=== PATIENT | female | born 1945 | race Caucasian/White ===

== ENCOUNTER → 2018-03-31 | Outpatient (CLI) | payer OTHER ==
--- NOTE | 2018-03-31 18:58 | DIAGNOSTIC IMAGING REPORT ---
ABDOMEN LIMITED (US) HISTORY: 73 years-old Female RUQ PAIN,EPIGASTRIC PAIN, GALLSTONES VS INFECTION acute right upper quadrant abdominal pain COMPARISON: None available TECHNIQUE: Multiple real-time sonographic images of the abdominal right upper quadrant were obtained assessing grayscale appearance and color flow FINDINGS: Pancreas is mostly obscured by bowel gas with the visualized portions appearing unremarkable. The liver appears to be within normal limits without focal mass or intrahepatic biliary ductal dilation. Behavioral Science Chair reports hepatopedal flow within the main portal vein. Gallbladder is unremarkable without wall thickening, shadowing cholelithiasis or pericholecystic fluid. Minimal low level internal echoes within the gallbladder lumen suggests gallbladder sludge. Common bile duct is normal, 5 mm. Imaged right kidney is unremarkable without hydronephrosis. IMPRESSION: 1. Suggested mild gallbladder sludge without cholelithiasis or sonographic evidence of acute cholecystitis. 2. No biliary ductal dilation. The above report was generated using voice recognition software. It may contain grammatical, syntax or spelling errors. Electronically signed by: Liang Hatfield M.D. 03/31/2018 6:57 PM Dictated Date/Time: 03/31/2018 6:54 PM
== END | disposition home or self-care (01) ==
LOC: C.ULTR 17:20
PROVIDERS: ATTEND Internal Medicine
DX: R10.11 Right upper quadrant pain (principal); R10.13 Epigastric pain

== ENCOUNTER 2019-07-05 18:43 | Inpatient (IN) ==
[2019-07-05] MEDS ORDERED: HYDROmorphone INJ 1 MG/ML SYRINGE IV PRN (18:46)
[2019-07-05] MEDS ORDERED: ONDANSETRON INJ 2 MG/ML 2 ML VIAL IV STA (18:46)
[2019-07-05] MEDS ORDERED: ACETAMINOPHEN 1,000 MG/100 ML VIAL IV STA (18:59)
[2019-07-05] MEDS ORDERED: SODIUM CHLORIDE 0.9% 1000ML 1,000 ML IV SCH (19:00)
[2019-07-05 19:02] LABS: Basophils # (auto) 0.03 K/uL (0-0.2); Basophils % (auto) 0.3 %; Eosinophils # (auto) 0.29 K/uL (0-0.5); Eosinophils % (auto) 2.5 %; Hematocrit (blood only) 40.1 % (37-47); Hemoglobin 13.8 g/dL (12.0-16.0); Immature Granulocytes # (auto) 0.35 K/uL (0.00-0.02); Lymphocytes # (auto) 1.76 K/uL (1.2-3.4); Mean Corpuscular Hgb Conc 34.4 g/dL (32-36); Mean Corpuscular Volume 86.8 fL (80-100); Mean Platelet Volume 9.8 fL (7.4-10.4); Monocytes # (auto) 0.04 K/uL (0.11-0.59); Monocytes % (auto) 0.3 %; Neutrophils # (auto) 9.24 K/uL (1.4-6.5); Neutrophils % (auto) 78.9 %; Nucleated RBC # (auto) 0.03 K/uL (0-0); Nucleated RBC % (auto) 0.2 %; Platelet Count 239 K/uL (130-400); RDW Coefficient of Variation 14.9 % (11.5-14.5); RDW Standard Deviation 46.6 fL (36.4-46.3); Red Blood Count 4.62 M/uL (4.2-5.4); White Blood Count 11.71 K/uL (4.8-10.8)
[2019-07-05] MEDS ORDERED: SODIUM CHLORIDE 0.9% 1000ML 1,000 ML IV ONE (19:10)
[2019-07-05] MEDS ORDERED: OPTIRAY 320 125ml IV PRN (19:11)
[2019-07-05 19:23] LABS: Prothrombin Time 9.8 Seconds (9.0-12.0)
[2019-07-05 19:25] LABS: Alanine Aminotransferase 30 U/L (12-78); Albumin Level 3.6 gm/dl (3.4-5.0); Aspartate Aminotransferase 13 U/L (15-37); BUN Creatinine Ratio 15.5 (10-20); Blood Urea Nitrogen 17 mg/dl (7-18); Calcium 8.8 mg/dl (8.5-10.1); Carbon Dioxide 24 mmol/L (21-32); Chloride 108 mmol/L (98-107); Est GFR (African American) 57.1; Est GFR (Non-African American) 49.3; Glucose 95 mg/dl (70-99); Potassium 3.9 mmol/L (3.5-5.1); Sodium 139 mmol/L (136-145)
[2019-07-05 19:30] LABS: Albumin Globulin Ratio 0.9 (0.9-2); Alkaline Phosphatase 135 U/L (45-117); Bilirubin,Total 0.5 mg/dl (0.2-1); Creatine Kinase 48 U/L (26-192); Creatine Kinase MB < 1.0 ng/ml (0.5-3.6); Globulin 3.8 gm/dl (2.5-4.0); Total Protein 7.4 gm/dl (6.4-8.2); Troponin I < 0.015 ng/ml (0-0.045)
--- NOTE | 2019-07-05 19:31 | CT Scan Report ---
CT ANGIOGRAM OF THE ABDOMEN AND PELVIS; CT SCAN OF THE LUMBAR SPINE WITHOUT IV CONTRAST CLINICAL HISTORY: Generalized abdominal pain. Low back pain. COMPARISON STUDY: Abdominal ultrasound dated 03/31/2018. TECHNIQUE: Following the IV administration of 120 cc of Optiray 320, CT angiogram of the abdomen and pelvis was performed from the lung bases the proximal femora. Additionally, CT of the lumbar spine is performed from the lower thoracic spine to the sacrum. Images for both examinations are reviewed in the axial, sagittal, and coronal planes. 3-D MIPS images are created and assessed. IV contrast was ad ministered without complication. A dose lowering technique was utilized adhering to the principles o f ALARA. CT DOSE: 379.48 mGy.cm FINDINGS: Lower chest: The heart is normal in size and without pericardial effusion. Advanced emphysematous bj nge is seen at the lung bases with bibasilar bullae. No airspace consolidation or pleural effusion is identified. There is a small to moderate hiatal hernia. Liver: The contrast-enhanced liver is enlarged, measuring 19 cm in length. The liver demonstrates dif fusely diminished attenuation consistent with hepatic steatosis. There is no intrahepatic or ductal d ilatation. The main portal veins appear patent. Gallbladder: Unremarkable. Spleen: Normal in size and attenuation noting heterogeneous arterial phase enhancement. Pancreas: Moderately atrophic and grossly unremarkable. Adrenal glands: Unremarkable. Kidneys: The contrast enhanced kidneys history cortical atrophy and are without hydronephrosis. The k idneys enhance symmetrically. Abdominal aorta and iliac arteries: There is advanced atherosclerotic calcification of the abdominal aorta. 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 The abdominal aorta is otherwise normal in caliber and patent. No dissection is seen. There is atherosclerotic calcification of the iliac arteries bilaterally. There is less than 50% luminal n arrowing of the proximal left common iliac artery secondary to focal plaque. The visualized common fe moral and superficial femoral arteries are clear. Major branches of the abdominal aorta: The celiac trunk and superior mesenteric artery are patent. In ferior mesenteric arteries not visualized and likely thrombosed. There are 2 left renal arteries and a single right renal artery. These are patent. Hepatic arterial anatomy is conventional. The splenic artery is patent. Bowel: Question mild wall thickening and hyperemia of the distal stomach. There is moderate sigmoid d iverticulosis without CT evidence of acute diverticulitis. No bowel obstruction is seen. The appendix is not identified. Peritoneum: There is no intraperitoneal free air or abdominal ascites. Lymphadenopathy: None. Pelvic viscera: The bladder is decompressed and not well evaluated. The uterus is surgically absent. No adnexal lesion is seen. Skeletal structures: The skeletal structures are osteopenic. No lytic or blastic lesions are seen. LUMBAR SPINE: Vertebral body height and alignment are maintained throughout the lumbar spine. There i s no evidence of fracture or malalignment. There is straightening of the lumbar lordosis. Small anter ior osteophytes are noted. The transverse and spinous processes are intact. There is no evidence of s pondylolysis. There is advanced disc space narrowing with endplate sclerosis seen at L3-L4. Mild to m oderate disc space narrowing is seen at L4-L5. The remaining disc spaces appear preserved. Posterior disc osteophyte complexes are present at L3-L4, L4-L5, and L5-S1. There is no CT evidence of large di sc herniation or high-grade central canal stenosis. The paraspinous soft tissues are within normal li mits. IMPRESSION: 1. Question mild wall thickening and hyperemia of the distal stomach. Correlate clinically for eviden ce of gastritis. 2. Advanced emphysema. 3. 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 4. The abdominal aorta is otherwise normal in caliber. No dissection is seen and the abdominal aorta is widely patent. 5. The inferior mesenteric artery is not identified and presumably thrombosed. 6. The celiac trunk and superior mesenteric arteries are widely patent. 7. There is moderate diverticulosis of the sigmoid colon without CT evidence of acute diverticulitis. 8. No acute bony abnormality is seen involving the lumbar spine. 9. Osteopenia and spondylotic change as above. 10. Hepatomegaly and hepatic steatosis. 11. Additional findings as above. Electronically signed by: Jerome Mir M.D. 07/05/2019 7:29 PM
--- NOTE | 2019-07-05 19:52 | XRay Report ---
SINGLE VIEW CHEST CLINICAL HISTORY: Generalized abdominal pain. FINDINGS: An AP, portable, upright chest radiograph is obtained. No prior studies are available for c omparison at the time of dictation. The examination is degraded by portable technique, apical lordoti c positioning, and patient rotation. The cardiomediastinal silhouette is unremarkable noting atheros clerotic calcification of the thoracic aorta. Emphysematous change is noted. There is bibasilar scarr ing/atelectasis. No airspace consolidation or large pleural effusion is identified. No pneumothorax i s seen. The skeletal structures are osteopenic. The bony thorax is grossly intact. IMPRESSION: Emphysematous change with no active disease in the chest. Electronically signed by: Jerome Mir M.D. 07/05/2019 7:51 PM
[2019-07-05 21:10] LABS: Appearance Urine Clear (Clear); Bilirubin Urine Negative (Negative); Blood Urine Negative (Negative); Color Urine Yellow; Glucose Urine UA Negative (Negative); Ketones Urine Negative (Negative); Leukocyte Esterase Urine Negative (Negative); Nitrite Urine Negative (Negative); Protein Urine Negative (Negative); Specific Gravity Urine > 1.045 (1.000-1.030); Urobilinogen Urine Negative (Negative)
[2019-07-05] MEDS ORDERED: LACTATED RINGER'S 1,000 ML IV SCH (21:15)
--- NOTE | 2019-07-05 21:58 | History & Physical Report ---
Date of Service July 05, 2019 Assessment & Plan (1) Acute pancreatitis: This is a 74 yr old F who has a significant pmh of HLD, Fibromyaglia, rheumatoid arthritis, GERD, depression who presents to [facility] secondary to pain all over x 25 minutes. In ED patient was noted to have a lipase of 15,060. Her W BC was 11.7, H&H stable 13.8 and 40.1, Pletal count 239. BUN/creatinine stable at 17 and 1.09. EKG revealed normal sinus rhythm at 80 bpm, no ST or T wave changes. LFTs unremarkable. Urinalysis negative for infection but concentrated. Troponin and CK to WNL. 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 Concern for acute pancreatitis -patient denies alcohol use, but does use mo derate Motrin and diclofenac. Also concern for questionable gallbladder or biliary pathology. Keep n.p.o., bowel rest IV fluid Ultrasound of right upper quadrant to rule out gallbladder pathology Repeat lipase Consider GI consult in a.m. Please refer to Dr. Willett's addendum for further details regarding assessment and plan. 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 The abdominal aorta is otherwise normal in caliber and patent. No dissection is seen. There is atherosclerotic calcification of the iliac arteries bilaterally. There is less than 50% luminal narrowing of the proximal left common iliac artery secondary to focal plaque. The visualized common femoral and superficial femoral arteries are clear. Major branches of the abdominal aorta: The celiac trunk and superior mesenteric artery are patent. Inferior mesenteric arteries not visualized and likely thrombosed. There are 2 left renal arteries and a single right renal artery. These are patent. Hepatic arterial anatomy is conventional. The splenic artery is patent. Continue statin therapy, Add ASA obtain lipid panel (5) Rheumatoid arthritis: on diclofenac as outpt would hold in setting of acute pancreatitis (6) HLD (hyperlipidemia): continue statin therapy (7) DVT prophylaxis: Per Dr. Willett Disposition: discharge to home when able Follow up: PCP Dr. Avila upon discharge; also arrange appropriate outpt follow up in regards to incidental finding on CTA of 1.4cm thrombosed saccular aneurysm of aorta History of Present Illness Chief Complaint: Pain all over x 25 minutes Primary Care Provider: Janie Avila MD This is a 74 yr old F who has a significant pmh of HLD, Fibromyaglia, rheumatoid arthritis, GERD, depression who presents to [facility] secondary to pain all over x 25 minutes. Patient was sitting down at her significant other's brother's house when she stood up from chair and had abrupt onset of, "pain all over." Pain was in the back, abdomen, radiating to the chest and down legs. Pain was excruciating, described as stabbing, rated 15/10, worse than child , "you could hear me scream from a mile away." Nothing made pain better. Pain made worse with any sort of movement, even riding in the car. Never had anything like this in the past. Prior to pain she had some fruit, turkey and ham cubes. Further had associated nausea, dizziness. Prior to abdominal pain earlier today she had diarrhea x2, loose and watery in which she took 2 imodium. When asked where pain started she was unable to localize the pain and just stated it was all over and excruciating. She denies any associated palpitations, sob, herrera, emesis, f/c/s. She further denies any melena, hematochezia, dysuria, hematuria, increased urg/freq with urination. Denies significant ETOH use, a glass of wine a week. She takes 2 motrin throughout night occasionally if arthralgias are bad. Otherwise denies significant NSAID use. Patient denies any significant family history of CAD, AAA, HTN, diabetes. States her mother and father both lived in their late 90s. Allergies Allergy/AdvReac Type Severity Reaction Status Date / Time latex Allergy Rash Unverified 07/05/19 21:37 nitrofurantoin AdvReac Vomiting Unverified 07/05/19 21:26 Sulfa (Sulfonamide AdvReac Vomiting Unverified 07/05/19 21:27 Antibiotics) Home Medications Home Medications Medication Instructions Recorded Confirmed Type diclofenac sodium 75 mg PO BID 07/05/19 07/05/19 History epinephrine 0.3 mg IM .UD PRN 07/05/19 07/05/19 History estradiol 2 mg PO .UD 07/05/19 07/05/19 History omeprazole 20 mg PO DAILY 07/05/19 07/05/19 History simvastatin 40 mg PO HS 07/05/19 07/05/19 History trazodone 150 mg PO HS 07/05/19 07/05/19 History Past Med/Surg History Family History Aunt Cerebral aneurysm Other No significant family history Social History Preferred Language: Malaysian Communication Ability: Effective Diesel Instructor Required: No Beliefs That Will Affect Care: None marital status: / Current Living Situation: Significant Other current occupational status: retired current occupation: worked in a [employer] Other Information That Helps Us Care for You: No Feels Safe at Home: Yes Safety Concerns: Feels Safe At This Time Smoking Status: Never smoker Hx Alcohol Use: No Hx Substance Use: No Childhood Exposure to Second-Hand Smoke: No Physical Exam Physical Exam: Gen: WD/WN, Petite, elderly, female, NAD, sitting up in bed, pleasant, conversing easily Head: Normocephalic, Atraumatic Eyes: Sclera normal, no conjunctival injection, PERRLA, EOMI ENT: Gross hearing intact, normal pharynx, mucous membranes moist Neck: supple, no adenopathy, No JVD, no bruit, Resp: Clear to auscultation b/l, no wheeze, rales, rhonchi. Normal insp/exp effort, no accessory muscle use CV: Regular rate, regular rhythm, no murmur, rub, gallop, or ectopy Abd: +BS x 4, soft, mild tenderness to RUQ and epigastrum, nondistended Musculoskeletal: moves extremities active rom x 4, strength intact, good utility mechanic strength Extremities: No edema bilaterally Skin: warm, moist, no rash, negative turgor, cap refill < 2sec Neuro: Alert and oriented x 3, speech normal, good mood/affect, cran nerve 2-12 intact grossly : deferred Results & Data Vital Signs (Past 12 Hours) Vital Signs Temp Pulse Pulse Resp BP BP Pulse Ox 07/05/19 19:53 75 18 117/63 90 07/05/19 18:44 36.6 C 132 H 20 180/145 H 93 Laboratory Results Short CBC 07/05/19 Range/Units 18:50 WBC 11.71 H (4.8-10.8) K/uL Hgb 13.8 (12.0-16.0) g/dL Hct 40.1 (37-47) % Plt Count 239 (130-400) K/uL BMP 07/05/19 18:50 Sodium 139 Potassium 3.9 Chloride 108 H Carbon Dioxide 24 BUN 17 Creatinine 1.09 Glucose 95 Calcium 8.8 Cardiac Enzymes 07/05/19 Range/Units 18:50 Total Creatine Kinase 48 (26-192) U/L CK-MB (CK-2) < 1.0 (0.5-3.6) ng/ml Troponin I < 0.015 (0-0.045) ng/ml Liver Function 07/05/19 Range/Units 18:50 Total Bilirubin 0.5 (0.2-1) mg/dl AST 13 L (15-37) U/L ALT 30 (12-78) U/L Alkaline Phosphatase 135 H (45-117) U/L Albumin 3.6 (3.4-5.0) gm/dl Urine 07/05/19 Range/Units 20:49 Urine Color Yellow Urine Appearance Clear (Clear) Urine pH 6.0 (4.5-7.5) Ur Specific Randolph > 1.045 H (1.000-1.030) Urine Protein Negative (Negative) Urine Glucose (UA) Negative (Negative) Diagnostic Findings CXR: FINDINGS: An AP, portable, upright chest radiograph is obtained. No prior studies are available for comparison at the time of dictation. The examination is degraded by portable technique, apical lordotic positioning, and patient rotation. The cardiomediastinal silhouette is unremarkable noting atherosclerotic calcification of the thoracic aorta. Emphysematous change is noted. There is bibasilar scarring/atelectasis. No airspace consolidation or large pleural effusion is identified. No pneumothorax is seen. The skeletal structures are osteopenic. The bony thorax is grossly intact. IMPRESSION: Emphysematous change with no active disease in the chest. Lumbar Spine CT: IMPRESSION: 1. Question mild wall thickening and hyperemia of the distal stomach. Correlate clinically for evidence of gastritis. 2. Advanced emphysema. 3. 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 4. The abdominal aorta is otherwise normal in caliber. No dissection is seen and the abdominal aorta is widely patent. 5. The inferior mesenteric artery is not identified and presumably thrombosed. 6. The celiac trunk and superior mesenteric arteries are widely patent. 7. There is moderate diverticulosis of the sigmoid colon without CT evidence of acute diverticulitis. 8. No acute bony abnormality is seen involving the lumbar spine. 9. Osteopenia and spondylotic change as above. 10. Hepatomegaly and hepatic steatosis. 11. Additional findings as above. Abd/Pelvis CTA & Lumbar spine: IMPRESSION: 1. Question mild wall thickening and hyperemia of the distal stomach. Correlate clinically for evidence of gastritis. 2. Advanced emphysema. 3. 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 4. The abdominal aorta is otherwise normal in caliber. No dissection is seen and the abdominal aorta is widely patent. 5. The inferior mesenteric artery is not identified and presumably thrombosed. 6. The celiac trunk and superior mesenteric arteries are widely patent. 7. There is moderate diverticulosis of the sigmoid colon without CT evidence of acute diverticulitis. 8. No acute bony abnormality is seen involving the lumbar spine. 9. Osteopenia and spondylotic change as above. 10. Hepatomegaly and hepatic steatosis. 11. Additional findings as above. Medications Administered Hydromorphone HCl (Dilaudid) 1 mg IV Q15M PRN PRN Reason: Pain Stop: 07/19/19 18:45 Last Admin: 07/05/19 18:52 Dose: 1 mg Documented by: [id number] Ioversol (Optiray 320 125ml) 120 ml IV ONCE PRN PRN Reason: Interaction Checking Stop: 07/09/19 19:10 Last Admin: 07/05/19 19:11 Dose: 120 ml Documented by: [id number] Discontinued Medications Sodium Chloride (Nss 1000ml) 1,000 mls @ 999 mls/hr IV .Q1H1M ORA Stop: 07/05/19 20:00 Last Infusion: 07/05/19 20:29 Dose: 0 mls/hr Documented by: [id number] Admin: 07/05/19 19:29 Dose: 999 mls/hr Documented by: [id number] Acetaminophen (Ofirmev) 1,000 mg in 100 mls @ 400 mls/hr IV NOW STA Stop: 07/05/19 19:13 Last Infusion: 07/05/19 20:29 Dose: 0 mls/hr Documented by: [id number] Admin: 07/05/19 19:53 Dose: 400 mls/hr Documented by: [id number] Sodium Chloride (Nss 1000ml) 1,000 mls @ 999 mls/hr IV .Q1H1M ONE Stop: 07/05/19 20:10 Last Admin: 07/05/19 19:53 Dose: 999 mls/hr Documented by: [id number] Ondansetron HCl (Zofran) 4 mg IV NOW STA Stop: 07/05/19 18:47 Last Admin: 07/05/19 18:52 Dose: 4 mg Documented by: [id number] ECG Rate (beats per minute): 80 Rhythm: normal sinus Code Status & VTE Plan Code Status Full Code VTE Prophylaxis Plan VTE Prophylaxis will be ordered: Yes Supervising Physician Co-Signing Physician Notes IM ATTENDING : Patient seen and examined. History obtained from patient and records. Preceding documentation by Ms. Emi Kumar PA-C reviewed. FINAL ASSESSMENT AND PLAN as follows : Acute pancreatitis Rule out biliary etiology Hypertension, elevated secondary discomfort not on maintenance meds Hyperlipidemia on statin Rx PVD Past tobacco abuse GMF Bowel rest IVF, analgesia Gallbladder ultrasound GI consult RE pancreatitis May need surgery consultation pending gallbladder ultrasound results Aspirin for PVD DVT prophylaxis. Lovenox subcu Full code
[2019-07-06] MEDS ORDERED: PROMETHAZINE HCL 12.5 MG in SODIUM CHLORIDE 0.9% 50 ML IV PRN (00:21)
[2019-07-06] MEDS ORDERED: ACETAMINOPHEN 325 MG TAB PO PRN (00:21)
[2019-07-06] MEDS ORDERED: LORazepam 0.25 MG/0.5 ML VIAL IV PRN (00:21)
[2019-07-06] MEDS ORDERED: MoRPHine SULFATE 2 MG/ML CARP IV PRN (00:21)
--- NOTE | 2019-07-06 00:44 | Emergency Department Note ---
Entered by Pierre Tejada acting as a scribe for Aguila Larson MD History of Present Illness General Chief complaint: Back Injury/Pain Stated complaint: BACK PAIN Time Seen by Provider: 07/05/19 18:44 Source: patient History of Present Illness Onset (ago): hour(s) (half hour ago) Location: back Pain Consistency: + constant Quality: + other (pulsating) Associated symptoms: + other (Positive for abdominal pain.) The patient is a 74 year old female who presents to the emergency department with complaints of constant back pain beginning a half hour ago. The patient states that her pain started when she was getting up from a chair and she notes that her back pain is mostly in her lower back. She reports that her pain shoots to her upper back and feels like a pulsating. She also complains of abdominal pain. The patient states that she does not take any blood thinners. Home Medications Home Medications Medication Instructions Recorded Confirmed Type diclofenac sodium 75 mg PO BID 07/05/19 07/05/19 History epinephrine 0.3 mg IM .UD PRN 07/05/19 07/05/19 History estradiol 2 mg PO .UD 07/05/19 07/05/19 History omeprazole 20 mg PO DAILY 07/05/19 07/05/19 History simvastatin 40 mg PO HS 07/05/19 07/05/19 History trazodone 150 mg PO HS 07/05/19 07/05/19 History Allergies Allergy/AdvReac Type Severity Reaction Status Date / Time latex Allergy Rash Unverified 07/05/19 21:37 nitrofurantoin AdvReac Vomiting Unverified 07/05/19 21:26 Sulfa (Sulfonamide AdvReac Vomiting Unverified 07/05/19 21:27 Antibiotics) Past Med/Surg History Medical History PVD (peripheral vascular disease) Emphysema of lung Saccular aneurysm Fibromyalgia (Chronic) Rheumatoid arthritis (Chronic) HLD (hyperlipidemia) (Chronic) Surgical History History of rectocele (Chronic) History of appendectomy (Chronic) History of hysterectomy with bilateral oophorectomy (Chronic) Family History Aunt Cerebral aneurysm Other No significant family history Social History Preferred Language: Pashto Communication Ability: Effective marital status: / Current Living Situation: Significant Other current occupational status: retired current occupation: worked in a [employer] Feels Safe at Home: Yes Smoking Status: Never smoker Hx Alcohol Use: Yes Alcohol type: wine Alcohol Intake Frequency: Rarely Hx Substance Use: No Childhood Exposure to Second-Hand Smoke: No Review of Systems See HPI for pertinent positives & negatives. and A total of 10 systems reviewed and were otherwise negative Physical Exam Vital Signs Vital Signs - 24 hr 07/05/19 18:44 07/05/19 19:53 07/05/19 22:18 Temperature 36.6 C Temperature Source Oral Sepsis Recent Fever Within 48 Hours No Sepsis Action Taken by Nursing No Action Required Pulse Rate 132 H Pulse Rate [Apical] 75 73 Respiratory Rate 20 18 18 Blood Pressure 180/145 H Blood Pressure [Right Arm] 117/63 141/83 H Blood Pressure Mean 156 Blood Pressure Mean [Right Arm] 81 102 Pulse Oximetry 93 90 95 Oxygen Delivery Method Room Air Room Air GENERAL: Awake, alert, writhing around bed crying, complaining of abdominal pain. HENT: Normocephalic, atraumatic. Oropharynx unremarkable. EYES: Normal conjunctiva. Sclera non-icteric. NECK: Supple. No nuchal rigidity. FROM. No JVD. RESPIRATORY: Clear to auscultation. CARDIAC: Regular rate, normal rhythm. Extremities warm and well perfused. Pulses equal. ABDOMEN: Soft, non-distended. No rebound or guarding. No masses. Diffusely tender on exam. RECTAL: Deferred. MUSCULOSKELETAL: Chest examination reveals no tenderness. The back is symm etrical on inspection without obvious abnormality. There is no CVA tenderness to palpation. No joint edema. LOWER EXTREMITIES: Calves are equal size bilaterally and non-tender. No edema. No discoloration. NEURO: Normal sensorium. No sensory or motor deficits noted. SKIN: No rash or jaundice noted. Course 1844: The patient was evaluated in room A10. A complete history and physical exam was performed. 1848: I performed a bedside FAST on the patient. It showed no evidence of free fluid in the abdomen. 1953: I discussed the patient's case with Dr[facility] Jul[facility] 2051: Upon reevaluation, the patient is stable. I discussed the findings and the treatment plan with the patient. She expresses agreement and understanding. I spoke with Dr. Willett of the [facility]. The patient will be evaluated for further management. 2054: I rechecked the patient. Consultations Consultation #1: I discussed the patient's case with Dr. Julien - General Surgery, [place]. Time: 19:54 Consultation #2: I reviewed the patient's [facility] He will evaluate the patient for further management. Time: 20:52 Administered Medications Discontinued Medications Hydromorphone HCl (Dilaudid) 1 mg IV Q15M PRN PRN Reason: Pain Stop: 07/19/19 18:45 Last Admin: 07/05/19 18:52 Dose: 1 mg Documented by: [id number] Sodium Chloride (Nss 1000ml) 1,000 mls @ 999 mls/hr IV .Q1H1M ORA Stop: 07/05/19 20:00 Last Infusion: 07/05/19 20:29 Dose: 0 mls/hr Documented by: [id number] Admin: 07/05/19 19:29 Dose: 999 mls/hr Documented by: [id number] Acetaminophen (Ofirmev) 1,000 mg in 100 mls @ 400 mls/hr IV NOW STA Stop: 07/05/19 19:13 Last Infusion: 07/05/19 20:29 Dose: 0 mls/hr Documented by: [id number] Admin: 07/05/19 19:53 Dose: 400 mls/hr Documented by: [id number] Sodium Chloride (Nss 1000ml) 1,000 mls @ 999 mls/hr IV .Q1H1M ONE Stop: 07/05/19 20:10 Last Admin: 07/05/19 19:53 Dose: 999 mls/hr Documented by: [id number] Ioversol (Optiray 320 125ml) 120 ml IV ONCE PRN PRN Reason: Interaction Checking Stop: 07/09/19 19:10 Last Admin: 07/05/19 19:11 Dose: 120 ml Documented by: [id number] Ondansetron HCl (Zofran) 4 mg IV NOW STA Stop: 07/05/19 18:47 Last Admin: 07/05/19 18:52 Dose: 4 mg Documented by: [id number] Medical Decision Making Differential Diagnosis Differential diagnosis: Etiologies such as muscular strain, fracture, metastatic disease, disc herniation, sciatica, epidural abscess, vertebral osteomyelitis, discitis, spinal epidural hematoma, cord compression, cauda equina/conus medullaris syndrome, aortic disease, infection, shingles, renal colic, gastrointestinal, acute exacerbation of chronic back pain, as well as others were entertained. Medical Records Attestation: I reviewed the patient's medical records. Home Medications Current Medication List: was personally reviewed by me Laboratory Data Attestation: I reviewed the patient's lab results. Result diagrams: 07/05/19 18:50 07/05/19 18:50 Lab Results 07/05/19 07/05/19 07/05/19 Range/Units 18:47 18:50 18:50 WBC 11.71 H (4.8-10.8) K/uL RBC 4.62 (4.2-5.4) M/uL Hgb 13.8 (12.0-16.0) g/dL Hct 40.1 (37-47) % MCV 86.8 (80-100) fL MCH 29.9 (25-34) pg MCHC 34.4 (32-36) g/dL RDW Std Deviation 46.6 H (36.4-46.3) fL RDW Coeff of Cydney 14.9 H (11.5-14.5) % Plt Count 239 (130-400) K/uL MPV 9.8 (7.4-10.4) fL Immature Gran % (Auto) 3.0 % Neut % (Auto) 78.9 % Lymph % (Auto) 15.0 % Parker % (Auto) 0.3 % Eos % (Auto) 2.5 % Baso % (Auto) 0.3 % Immature Gran # (Auto) 0.35 H (0.00-0.02) K/uL Neut # (Auto) 9.24 H (1.4-6.5) K/uL Lymph # (Auto) 1.76 (1.2-3.4) K/uL Parker # (Auto) 0.04 L (0.11-0.59) K/uL Eos # (Auto) 0.29 (0-0.5) K/uL Baso # (Auto) 0.03 (0-0.2) K/uL Absolute Nucleated RBC 0.03 H (0-0) K/uL Nucleated RBC % (auto) 0.2 % PT 9.8 (9.0-12.0) Seconds INR 1.0 (0.9-1.1) Sodium 139 (136-145) mmol/L Potassium 3.9 (3.5-5.1) mmol/L Chloride 108 H (98-107) mmol/L Carbon Dioxide 24 (21-32) mmol/L Anion Gap 8.0 (3-11) BUN 17 (7-18) mg/dl Creatinine 1.09 (0.6-1.2) mg/dl Est Cr Clr Drug Dosing Not Reportable Est GFR ( Amer) 57.1 Est GFR (Non-Af Amer) 49.3 BUN/Creatinine Ratio 15.5 (10-20) Glucose 95 (70-99) mg/dl Calcium 8.8 (8.5-10.1) mg/dl Magnesium (1.8-2.4) mg/dl Total Bilirubin 0.5 (0.2-1) mg/dl AST 13 L (15-37) U/L ALT 30 (12-78) U/L Alkaline Phosphatase 135 H (45-117) U/L Total Creatine Kinase 48 (26-192) U/L CK-MB (CK-2) < 1.0 (0.5-3.6) ng/ml CK/CKMB % Calc TNP Troponin I < 0.015 (0-0.045) ng/ml Total Protein 7.4 (6.4-8.2) gm/dl Albumin 3.6 (3.4-5.0) gm/dl Globulin 3.8 (2.5-4.0) gm/dl Albumin/Globulin Ratio 0.9 (0.9-2) Lipase 1560 H (73-393) U/L Urine Color Urine Appearance (Clear) Urine pH (4.5-7.5) Ur Specific Lamona (1.000-1.030) Urine Protein (Negative) Urine Glucose (UA) (Negative) Urine Ketones (Negative) Urine Blood (Negative) Urine Nitrite (Negative) Urine Bilirubin (Negative) Urine Urobilinogen (Negative) Ur Leukocyte Esterase (Negative) 07/05/19 07/05/19 Range/Units 18:50 20:49 WBC (4.8-10.8) K/uL RBC (4.2-5.4) M/uL Hgb (12.0-16.0) g/dL Hct (37-47) % MCV (80-100) fL MCH (25-34) pg MCHC (32-36) g/dL RDW Std Deviation (36.4-46.3) fL RDW Coeff of Cydney (11.5-14.5) % Plt Count (130-400) K/uL MPV (7.4-10.4) fL Immature Gran % (Auto) % Neut % (Auto) % Lymph % (Auto) % Parker % (Auto) % Eos % (Auto) % Baso % (Auto) % Immature Gran # (Auto) (0.00-0.02) K/uL Neut # (Auto) (1.4-6.5) K/uL Lymph # (Auto) (1.2-3.4) K/uL Parker # (Auto) (0.11-0.59) K/uL Eos # (Auto) (0-0.5) K/uL Baso # (Auto) (0-0.2) K/uL Absolute Nucleated RBC (0-0) K/uL Nucleated RBC % (auto) % PT (9.0-12.0) Seconds INR (0.9-1.1) Sodium (136-145) mmol/L Potassium (3.5-5.1) mmol/L Chloride (98-107) mmol/L Carbon Dioxide (21-32) mmol/L Anion Gap (3-11) BUN (7-18) mg/dl Creatinine (0.6-1.2) mg/dl Est Cr Clr Drug Dosing Est GFR ( Amer) Est GFR (Non-Af Amer) BUN/Creatinine Ratio (10-20) Glucose (70-99) mg/dl Calcium (8.5-10.1) mg/dl Magnesium 2.3 (1.8-2.4) mg/dl Total Bilirubin (0.2-1) mg/dl AST (15-37) U/L ALT (12-78) U/L Alkaline Phosphatase (45-117) U/L Total Creatine Kinase (26-192) U/L CK-MB (CK-2) (0.5-3.6) ng/ml CK/CKMB % Calc Troponin I (0-0.045) ng/ml Total Protein (6.4-8.2) gm/dl Albumin (3.4-5.0) gm/dl Globulin (2.5-4.0) gm/dl Albumin/Globulin Ratio (0.9-2) Lipase (73-393) U/L Urine Color Yellow Urine Appearance Clear (Clear) Urine pH 6.0 (4.5-7.5) Ur Specific Lamona > 1.045 H (1.000-1.030) Urine Protein Negative (Negative) Urine Glucose (UA) Negative (Negative) Urine Ketones Negative (Negative) Urine Blood Negative (Negative) Urine Nitrite Negative (Negative) Urine Bilirubin Negative (Negative) Urine Urobilinogen Negative (Negative) Ur Leukocyte Esterase Negative (Negative) Imaging Data Radiologist's Impression: Radiology results as stated below per my review and the radiologist's interpretation: Radiology results as stated below per my review and the radiologist's interpretation: T ANGIOGRAM OF THE ABDOMEN AND PELVIS; CT SCAN OF THE LUMBAR SPINE WITHOUT IV CONTRAST FINDINGS: Lower chest: The heart is normal in size and without pericardial effusion. Advanced emphysematous change is seen at the lung bases with bibasilar bullae. No airspace consolidation or pleural effusion is identified. There is a small to moderate hiatal hernia. Liver: The contrast-enhanced liver is enlarged, measuring 19 cm in length. The liver demonstrates diffusely diminished attenuation consistent with hepatic steatosis. There is no intrahepatic or ductal dilatation. The main portal veins appear patent. Gallbladder: Unremarkable. Spleen: Normal in size and attenuation noting heterogeneous arterial phase enhancement. Pancreas: Moderately atrophic and grossly unremarkable. Adrenal glands: Unremarkable. Kidneys: The contrast enhanced kidneys history cortical atrophy and are without hydronephrosis. The kidneys enhance symmetrically. Abdominal aorta and iliac arteries: There is advanced atherosclerotic calcification of the abdominal aorta. 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 The abdominal aorta is otherwise normal in caliber and patent. No dissection is seen. There is atherosclerotic calcification of the iliac arteries bilaterally. There is less than 50% luminal narrowing of the proximal left common iliac artery secondary to focal plaque. The visualized common femoral and superficial femoral arteries are clear. Major branches of the abdominal aorta: The celiac trunk and superior mesenteric artery are patent. Inferior mesenteric arteries not visualized and likely thrombosed. There are 2 left renal arteries and a single right renal artery. These are patent. Hepatic arterial anatomy is conventional. The splenic artery is patent. Bowel: Question mild wall thickening and hyperemia of the distal stomach. There is moderate sigmoid diverticulosis without CT evidence of acute diverticulitis. No bowel obstruction is seen. The appendix is not identified. Peritoneum: There is no intraperitoneal free air or abdominal ascites. Lymphadenopathy: None. Pelvic viscera: The bladder is decompressed and not well evaluated. The uterus is surgically absent. No adnexal lesion is seen. Skeletal structures: The skeletal structures are osteopenic. No lytic or blastic lesions are seen. LUMBAR SPINE: Vertebral body height and alignment are maintained throughout the lumbar spine. There is no evidence of fracture or malalignment. There is straightening of the lumbar lordosis. Small anterior osteophytes are noted. The transverse and spinous processes are intact. There is no evidence of spondylol ysis. There is advanced disc space narrowing with endplate sclerosis seen at L3- L4. Mild to moderate disc space narrowing is seen at L4-L5. The remaining disc spaces appear preserved. Posterior disc osteophyte complexes are present at L3- L4, L4-L5, and L5-S1. There is no CT evidence of large disc herniation or high- grade central canal stenosis. The paraspinous soft tissues are within normal limits. IMPRESSION: 1. Question mild wall thickening and hyperemia of the distal stomach. Correlate clinically for evidence of gastritis. 2. Advanced emphysema. 3. 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 4. The abdominal aorta is otherwise normal in caliber. No dissection is seen and the abdominal aorta is widely patent. 5. The inferior mesenteric artery is not identified and presumably thrombosed. 6. The celiac trunk and superior mesenteric arteries are widely patent. 7. There is moderate diverticulosis of the sigmoid colon without CT evidence of acute diverticulitis. 8. No acute bony abnormality is seen involving the lumbar spine. 9. Osteopenia and spondylotic change as above. 10. Hepatomegaly and hepatic steatosis. 11. Additional findings as above. Electronically signed by: Jerome Mir M.D. 07/05/2019 7:29 PM SINGLE VIEW CHEST FINDINGS: An AP, portable, upright chest radiograph is obtained. No prior studies are available for comparison at the time of dictation. The examination is degraded by portable technique, apical lordotic positioning, and patient rotation. The cardiomediastinal silhouette is unremarkable noting atherosclerotic calcification of the thoracic aorta. Emphysematous change is n oted. There is bibasilar scarring/atelectasis. No airspace consolidation or large pleural effusion is identified. No pneumothorax is seen. The skeletal structures are osteopenic. The bony thorax is grossly intact. IMPRESSION: Emphysematous change with no active disease in the chest. Electronically signed by: Jerome Mir M.D. 07/05/2019 7:51 PM ECG Data Attestation: I personally reviewed and interpreted this ECG as follows: Indication: back/shoulder pain Rate (beats per minute): 80 Rhythm: normal sinus Findings: no ST depression and no ST elevation Additional Comments: Normal EKG. Blood Pressure Blood Pressure Findings: Normal blood pressure Blood Pressure Disposition: did not require urgent referral MDM Narrative This is a 74-year-old female who presents emergency department complaining of severe abdominal pain that radiates into her back. Because of the nature of the patient's pain she was immediately sent for CAT scan of the abdomen and pelvis. This did not show any evidence of a ruptured aneurysm however the patient had a saccular aneurysm as well as an inferior mesenteric artery occlusion. Because of this I did discuss the case with Dr. Julien who felt that this was old. The patient's lipase came back elevated at 1500. Patient has never had a history of pancreatitis before. She was given Dilaudid for her pain she has a normal white blood cell count normal renal profile normal cardiac enzymes. Her EKG does not show any evidence of acute change. The patient would like to be admitted therefore I did discuss the case with the hospitalist service who agreed to admit the patient. Patient was in agreement with the treatment plan. Impression & Plan Acute pancreatitis, Back pain Discharge Plan Visit Data *Final* Discharge Date/Time: 07/05/19 22:52 Chief Complaint: Back Injury/Pain Stated Complaint: BACK PAIN ED Provider: Aguila Larson Discharge Problem: Acute pancreatitis, Back pain Patient Disposition: Admitted As Inpatient Discharge Instructions Interventions: ED Discharge Assessment Last Done: 07/05/19 22:52 The scribe's documentation has been prepared under my direction and personally reviewed by me in its entirety. I confirm that the note above accurately reflects all work, treatment, procedures, and medical decision making performed by me.
[2019-07-06] MEDS: TRAZODONE HCL 100 MG TAB PO SCH ×2 (01:36→21:17)
[2019-07-06] MEDS: LACTATED RINGER'S 1,000 ML IV SCH ×2 (01:37→05:34)
[2019-07-06] MEDS: D5W AND LACTATED RINGERS 1,000 ML IV SCH ×3 (06:14→17:30)
--- NOTE | 2019-07-06 06:18 | Ultrasound Report ---
US gallbladder HISTORY: Pain abd pain COMPARISON: None. FINDINGS: Pancreas: Limited visibility. Liver: Fatty infiltration Gallbladder. Trace sludge. No shadowing gallstones. : Bile duct 6 mm. Right kidney negative for hydronephrosis. IMPRESSION: Trace gallbladder sludge. Fatty replacement of the liver. The above report was generated using voice recognition software. It may contain grammatical, syntax or spelling errors. Electronically signed by: Jaxson Pfeiffer M.D. 07/06/2019 6:16 AM
[2019-07-06 07:25] LABS: Basophils # (auto) 0.02 K/uL (0-0.2); Basophils % (auto) 0.2 %; Eosinophils # (auto) 0.32 K/uL (0-0.5); Eosinophils % (auto) 3.3 %; Hematocrit (blood only) 31.6 % (37-47); Hemoglobin 10.7 g/dL (12.0-16.0); Immature Granulocytes # (auto) 0.03 K/uL (0.00-0.02); Immature Granulocytes % (auto) 0.3 %; Lymphocytes % (auto) 16.4 %; Mean Corpuscular Hgb Conc 33.9 g/dL (32-36); Mean Corpuscular Volume 86.6 fL (80-100); Mean Platelet Volume 9.9 fL (7.4-10.4); Monocytes # (auto) 0.53 K/uL (0.11-0.59); Monocytes % (auto) 5.4 %; Neutrophils # (auto) 7.26 K/uL (1.4-6.5); Neutrophils % (auto) 74.4 %; Platelet Count 189 K/uL (130-400); Red Blood Count 3.65 M/uL (4.2-5.4); White Blood Count 9.76 K/uL (4.8-10.8)
[2019-07-06] MEDS: PANTOprazole 40 MG TAB PO SCH (07:49)
[2019-07-06] MEDS: ASPIRIN 81 MG ECTAB PO SCH (07:49)
[2019-07-06] MEDS: ENOXAPARIN INJ 30 MG/0.3 ML SYR SQ SCH (07:50)
[2019-07-06 08:02] LABS: Albumin Globulin Ratio 0.9 (0.9-2); Albumin Level 2.6 gm/dl (3.4-5.0); BUN Creatinine Ratio 12.4 (10-20); Bilirubin,Total 0.3 mg/dl (0.2-1); Calcium 7.9 mg/dl (8.5-10.1); Creatinine Clr Calc Pharmacy 51.9 ml/min; Est GFR (African American) 79.4; Est GFR (Non-African American) 68.5; Globulin 2.9 gm/dl (2.5-4.0); Potassium 4.1 mmol/L (3.5-5.1); Total Protein 5.6 gm/dl (6.4-8.2)
--- NOTE | 2019-07-06 08:29 | Gastrointestinal Consultation ---
Date of Consultation July 06, 2019 Assessment & Plan (1) Acute pancreatitis: Her elevated lipase is diagnostic of acute pancreatitis. Uncertain cause of the acute pancreatitis. - The mention of sludge in the gallbladder could possibly point to some passage of sludge through the CBD as the cause of the pancreatitis, however, would expect elevated LFTs and dilated bile ducts on imaging and neither of these were present. - Her large infrarenal aneurysm could possibly be compressing the pancreas and could cause pancreatitis. - She denies any alcohol intake. - Her triglyceride levels are normal. Would treat acute pancreatitis with hydration, slowly advancing diet (clear liquids po today. If does well with lunch could have a low fat diet for supper or begin for breakfast tomorrow morning). Recommend OP EUS in 6-8 weeks. Present on Admission?: Yes Supervising Physician Co-Signing Physician Notes I have seen and examined the patient and discussed the management with FREDI Sykes. 74 yo fm for which GI is consulted for abdominal pain and lipase elevation suggestive of pancreatitis. Etiology unclear - denies herbal supplements, alcohol, no evidence of cbd dilation. PE - alert and oriented, about to chat on her cell phone, abd - soft nt nd +bs Lipase elevation on admission now normalized, lft's normal Imaging reviewed- no cbd dilation Agree with further plan of care as per Tony's outpt note. Outpatient EUS. History of Present Illness Reason for Consultation: Pancreatitis Requesting Physician: Dr. Willett Attending Physician: Tiago Ruffin MD History of Present Illness Ms. Natalie Salgado is a 74 yr old female pt of [facility] with a hx of HLD, Fibromyaglia, rheumatoid arthritis, GERD, depression. She presented to the ED yesterday for abdominal pain. She reports that she experienced the sudden onset of severe, "throbbing pain," over her, "entire body," at 6:30 PM yesterday when she went to stand up from sitting. She denies any alcohol intake, high fat food intake or similar pain episodes previously. On arrival, lipase elevated at of 15,060 -> 118 today. WBC and LFTs have been normal. Hb 13.8 on arrival -> 10.7 today. US with gallbladder with sludge, 6mm bile duct. CT angiogram with infrarenal aneurysm, non visible inferior mesenteric artery suggesting it is thrombosed, distal stomach wall thickening but no pancreas or bile duct abnormalities. She is kept NPO and has LR running at 20/hr. She has remained hemodynamically stable. Today, she is awake, alert, oriented, tells me that her pain is "nearly 100% better." She requests to eat and asks if she could go home today. Allergies Allergy/AdvReac Type Severity Reaction Status Date / Time latex Allergy Rash Unverified 07/05/19 21:37 nitrofurantoin AdvReac Vomiting Unverified 07/05/19 21:26 Sulfa (Sulfonamide AdvReac Vomiting Unverified 07/05/19 21:27 Antibiotics) Home Medications Home Medications Medication Instructions Recorded Confirmed Type diclofenac sodium 75 mg PO BID 07/05/19 07/05/19 History epinephrine 0.3 mg IM .UD PRN 07/05/19 07/05/19 History estradiol 2 mg PO .UD 07/05/19 07/05/19 History omeprazole 20 mg PO DAILY 07/05/19 07/05/19 History simvastatin 40 mg PO HS 07/05/19 07/05/19 History trazodone 150 mg PO HS 07/05/19 07/05/19 History Patient History Family History Aunt Cerebral aneurysm Other No significant family history Social History Preferred Language: Chinese Communication Ability: Effective Dentist Required: No Beliefs That Will Affect Care: None marital status: / Current Living Situation: Significant Other current occupational status: retired current occupation: worked in a [employer] Other Information That Helps Us Care for You: No Feels Safe at Home: Yes Safety Concerns: Feels Safe At This Time Smoking Status: Never smoker Hx Alcohol Use: No Hx Substance Use: No Childhood Exposure to Second-Hand Smoke: No Review of Systems Review of Systems: ROS: Gen: Denies weakness, fevers, weight loss Eyes: No eye redness, or pain, no recent vision changes; no yello eyes Resp: No SOB, no cough Cardio: No palpitations/irregular beats, no chest pain GI: No c/o abdominal pain except as part of her "entire body pain," a little nausea on arrival, no no vomiting; no acholic stools. : Denies pain on urination Skin: No jaundice, itching or new rashes Physical Exam Constitutional: WD/WN, vitals as above Eyes: PERRL, conjunctivae normal, anicteric sclerae ENMT: external ear and nose normal, oropharynx normal Neck: trachea midline, no thyromegaly Respiratory: normal respiratory effort, lungs clear to auscultation Cardiovascular: RRR, no murmur, no edema Gastrointestinal (Abdomen): Percussion/Palpation: + abdomen tender (diffusely - states, "it always hurts," but denies any worsening with palpat) and abdomen soft; no splenomegaly, no hernia and no ascites Skin: no rashes, warm and dry Neurologic: PERRL, EOMI, accommodation nl, no face palsy, no dysarthria Psychiatric: A+Ox3, euthymic affect Lymphatic: no cervical or axillary lymphadenopathy Results & Data Vital Signs (Past 12 Hours) Vital Signs Temp Pulse Resp BP BP Pulse Ox 07/06/19 07:50 36.8 C 69 18 148/77 H 94 07/06/19 00:00 36.4 C L 81 18 123/80 123/80 93 07/05/19 23:43 36.5 C 70 16 134/82 97 07/05/19 22:18 73 18 141/83 H 95 Diagnostic Findings RUQ ultrasound on 07/05/19: FINDINGS: Pancreas: Limited visibility. Liver: Fatty infiltration Gallbladder. Trace sludge. No shadowing gallstones. Bile duct 6 mm. Right kidney negative for hydronephrosis. CTA abd/pelvis: 1. Question mild wall thickening and hyperemia of the distal stomach. Correlate clinically for evidence of gastritis. 2. Advanced emphysema. 3. 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 4. The abdominal aorta is otherwise normal in caliber. No dissection is seen and the abdominal aorta is widely patent. 5. The inferior mesenteric artery is not identified and presumably thrombosed. 6. The celiac trunk and superior mesenteric arteries are widely patent. 7. There is moderate diverticulosis of the sigmoid colon without CT evidence of acute diverticulitis. 8. No acute bony abnormality is seen involving the lumbar spine. 9. Osteopenia and spondylotic change as above. 10. Hepatomegaly and hepatic steatosis. 11. Additional findings as above. (1) Acute pancreatitis Acute pancreatitis complication: unspecified Pancreatitis type: unspecified pancreatitis type Qualified Code(s): K85.90 - Acute pancreatitis without necrosis or infection, unspecified
--- NOTE | 2019-07-06 16:13 | Hospitalist Progress Note ---
Date of Service July 06, 2019 Assessment & Plan (1) Acute pancreatitis: per admitting team: This is a 74 yr old F who has a significant pmh of HLD, Fibromyaglia, rheumatoid arthritis, GERD, depression who presents to [facility] secondary to pain all over x 25 minutes. In ED patient was noted to have a lipase of 15,060. Her W BC was 11.7, H&H stable 13.8 and 40.1, Pletal count 239. BUN/creatinine stable at 17 and 1.09. EKG revealed normal sinus rhythm at 80 bpm, no ST or T wave changes. LFTs unremarkable. Urinalysis negative for infection but concentrated. Troponin and CK to WNL. 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 Concern for acute pancreatitis -patient denies alcohol use, but does use moderate Motrin and diclofenac. Also concern for questionable gallbladder or biliary pathology. 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 The abdominal aorta is otherwise normal in caliber and patent. No dissection is seen. There is atherosclerotic calcification of the iliac arteries bilaterally. There is less than 50% luminal narrowing of the proximal left common iliac artery secondary to focal plaque. The visualized common femoral and superficial femoral arteries are clear. Major branches of the abdominal aorta: The celiac trunk and superior mesenteric artery are patent. Inferior mesenteric arteries not visualized and likely thrombosed. There are 2 left renal arteries and a single right renal artery. These are patent. Hepatic arterial anatomy is conventional. The splenic artery is patent. Continue statin therapy, Add ASA (5) Rheumatoid arthritis: on diclofenac as outpt would hold in setting of acute pancreatitis (6) HLD (hyperlipidemia): continue statin therapy (7) DVT prophylaxis: Disposition: discharge to home when able Follow up: PCP Dr. Avila upon discharge; also arrange appropriate outpt follow up in regards to incidental finding on CTA of 1.4cm thrombosed saccular aneurysm of aorta Subjective ff up for acute pancreatitis seen resting in bed, comfortable in good spirits states abdominal pain has resolved tolerating clear liquids well no nausea/vomiting no other symptoms Review of Systems Review of Systems: All systems reviewed & are unremarkable except as noted in HPI & below Physical Exam Physical Exam: General- oriented x 3, not in distress, speaks in sentences with no effort or accessory muscle use Head- atraumatic Eyes- PERRL, EOMI, anicteric ENT- oropharynx clear Neck- supple, no JVD, no adenopathy, no thyromegaly; carotids +2/2, no bruits appreciated Lungs- clear to auscultation bilaterally, no rales/wheezes Heart- normal rate, regular rhythm; no murmur, no gallop, no rub appreciated Abdomen- normal bowel sounds, nondistended, soft, nontender, no masses or hepatosplenomegaly Extremities- no pretibial edema, no calf tenderness; peripheral pulses intact Neuro- alert, oriented x 3; CN 2-12 grossly intact; motor 5/5 bilaterally;sensation 100% on all extremities; no other gross focal neurologic deficits Skin- warm & dry Results & Data Vital Signs (Past 12 Hours) Vital Signs Temp Pulse Resp BP Pulse Ox 07/06/19 07:50 36.8 C 69 18 148/77 H 94 Laboratory Results Laboratory Results - last 24 hr 07/05/19 07/05/19 07/05/19 18:47 18:50 18:50 WBC 11.71 H RBC 4.62 Hgb 13.8 Hct 40.1 MCV 86.8 MCH 29.9 MCHC 34.4 RDW Std Deviation 46.6 H RDW Coeff of [place] 14.9 H Plt Count 239 MPV 9.8 Immature Gran % (Auto) 3.0 Neut % (Auto) 78.9 Lymph % (Auto) 15.0 [place] % (Auto) 0.3 Eos % (Auto) 2.5 Baso % (Auto) 0.3 Immature Gran # (Auto) 0.35 H Neut # (Auto) 9.24 H Lymph # (Auto) 1.76 [place] # (Auto) 0.04 L Eos # (Auto) 0.29 Baso # (Auto) 0.03 Absolute Nucleated RBC 0.03 H Nucleated RBC % (auto) 0.2 PT 9.8 INR 1.0 Sodium 139 Potassium 3.9 Chloride 108 H Carbon Dioxide 24 Anion Gap 8.0 BUN 17 Creatinine 1.09 Est Cr Clr Drug Dosing Not Reportable Est GFR ( Amer) 57.1 Est GFR (Non-Af Amer) 49.3 BUN/Creatinine Ratio 15.5 Glucose 95 POC Glucose Calcium 8.8 Magnesium Total Bilirubin 0.5 AST 13 L ALT 30 Alkaline Phosphatase 135 H Total Creatine Kinase 48 CK-MB (CK-2) < 1.0 CK/CKMB % Calc TNP Troponin I < 0.015 Total Protein 7.4 Albumin 3.6 Globulin 3.8 Albumin/Globulin Ratio 0.9 Triglycerides Lipase 1560 H Urine Color Urine Appearance Urine pH Ur Specific [place] Urine Protein Urine Glucose (UA) Urine Ketones Urine Blood Urine Nitrite Urine Bilirubin Urine Urobilinogen Ur Leukocyte Esterase 07/05/19 07/05/19 07/06/19 18:50 20:49 05:55 WBC RBC Hgb Hct MCV MCH MCHC RDW Std Deviation RDW Coeff of [place] Plt Count MPV Immature Gran % (Auto) Neut % (Auto) Lymph % (Auto) [place] % (Auto) Eos % (Auto) Baso % (Auto) Immature Gran # (Auto) Neut # (Auto) Lymph # (Auto) [place] # (Auto) Eos # (Auto) Baso # (Auto) Absolute Nucleated RBC Nucleated RBC % (auto) PT INR Sodium Potassium Chloride Carbon Dioxide Anion Gap BUN Creatinine Est Cr Clr Drug Dosing Est GFR ( Amer) Est GFR (Non-Af Amer) BUN/Creatinine Ratio Glucose POC Glucose 72 Calcium Magnesium 2.3 Total Bilirubin AST ALT Alkaline Phosphatase Total Creatine Kinase CK-MB (CK-2) CK/CKMB % Calc Troponin I Total Protein Albumin Globulin Albumin/Globulin Ratio Triglycerides Lipase Urine Color Yellow Urine Appearance Clear Urine pH 6.0 Ur Specific [place] > 1.045 H Urine Protein Negative Urine Glucose (UA) Negative Urine Ketones Negative Urine Blood Negative Urine Nitrite Negative Urine Bilirubin Negative Urine Urobilinogen Negative Ur Leukocyte Esterase Negative 07/06/19 07/06/19 06:32 06:32 WBC 9.76 RBC 3.65 L Hgb 10.7 L D Hct 31.6 L MCV 86.6 MCH 29.3 MCHC 33.9 RDW Std Deviation 48.0 H RDW Coeff of [place] 15.0 H Plt Count 189 MPV 9.9 Immature Gran % (Auto) 0.3 Neut % (Auto) 74.4 Lymph % (Auto) 16.4 [place] % (Auto) 5.4 Eos % (Auto) 3.3 Baso % (Auto) 0.2 Immature Gran # (Auto) 0.03 H Neut # (Auto) 7.26 H Lymph # (Auto) 1.60 [place] # (Auto) 0.53 Eos # (Auto) 0.32 Baso # (Auto) 0.02 Absolute Nucleated RBC Nucleated RBC % (auto) PT INR Sodium 145 Potassium 4.1 Chloride 113 H Carbon Dioxide 26 Anion Gap 6.0 BUN 10 D Creatinine 0.83 Est Cr Clr Drug Dosing 51.9 Est GFR ( Amer) 79.4 Est GFR (Non-Af Amer) 68.5 BUN/Creatinine Ratio 12.4 Glucose 85 POC Glucose Calcium 7.9 L Magnesium Total Bilirubin 0.3 AST 12 L ALT 21 Alkaline Phosphatase 89 Total Creatine Kinase CK-MB (CK-2) CK/CKMB % Calc Troponin I Total Protein 5.6 L D Albumin 2.6 L Globulin 2.9 Albumin/Globulin Ratio 0.9 Triglycerides 104 Lipase 118 Urine Color Urine Appearance Urine pH Ur Specific [place] Urine Protein Urine Glucose (UA) Urine Ketones Urine Blood Urine Nitrite Urine Bilirubin Urine Urobilinogen Ur Leukocyte Esterase (1) Acute pancreatitis Acute pancreatitis complication: unspecified Pancreatitis type: unspecified pancreatitis type Qualified Code(s): K85.90 - Acute pancreatitis without necrosis or infection, unspecified
[2019-07-06] MEDS: TRAMADOL HCL 50 MG TABLET PO PRN ×2 (17:30→21:18)
[2019-07-07] MEDS: PANTOprazole 40 MG TAB PO SCH (08:14)
[2019-07-07] MEDS: ENOXAPARIN INJ 30 MG/0.3 ML SYR SQ SCH (08:14)
[2019-07-07] MEDS: ASPIRIN 81 MG ECTAB PO SCH (08:14)
[2019-07-07 11:38] LABS: iSTAT Creatinine 1.1 mg/dl (0.6-1.3); iSTAT Hemoglobin 14.3 g/dl (12.0-16.0); iSTAT Ionized Calcium 1.2 mmol/l (1.12-1.32)
--- NOTE | 2019-07-07 15:15 | Discharge Summary ---
Date of Service July 07, 2019 Admission HPI Per Admitting Provider This is a 74 yr old F who has a significant pmh of HLD, Fibromyaglia, rheumatoid arthritis, GERD, depression who presents to [facility] secondary to pain all over x 25 minutes. Patient was sitting down at her significant other's brother's house when she stood up from chair and had abrupt onset of, "pain all over." Pain was in the back, abdomen, radiating to the chest and down legs. Pain was excruciating, described as stabbing, rated 15/10, worse than child , "you could hear me scream from a mile away." Nothing made pain better. Pain made worse with any sort of movement, even riding in the car. Never had anything like this in the past. Prior to pain she had some fruit, turkey and ham cubes. Further had associated nausea, dizziness. Prior to abdominal pain earlier today she had diarrhea x2, loose and watery in which she took 2 imodium. When asked where pain started she was unable to localize the pain and just stated it was all over and excruciating. She denies any associated palpitations, sob, herrera, nery sis, f/c/s. She further denies any melena, hematochezia, dysuria, hematuria, increased urg/freq with urination. Denies significant ETOH use, a glass of wine a week. She takes 2 motrin throughout night occasionally if arthralgias are bad. Otherwise denies significant NSAID use. Patient denies any significant family history of CAD, AAA, HTN, diabetes. States her mother and father both lived in their late 90s. Admission Exam Per Admitting Provider Gen: WD/WN, Petite, elderly, female, NAD, sitting up in bed, pleasant, conversing easily Head: Normocephalic, Atraumatic Eyes: Sclera normal, no conjunctival injection, PERRLA, EOMI ENT: Gross hearing intact, normal pharynx, mucous membranes moist Neck: supple, no adenopathy, No JVD, no bruit, Resp: Clear to auscultation b/l, no wheeze, rales, rhonchi. Normal insp/exp effort, no accessory muscle use CV: Regular rate, regular rhythm, no murmur, rub, gallop, or ectopy Abd: +BS x 4, soft, mild tenderness to RUQ and epigastrum, nondistended Musculoskeletal: moves extremities active rom x 4, strength intact, good marketing strategist strength Extremities: No edema bilaterally Skin: warm, moist, no rash, negative turgor, cap refill < 2sec Neuro: Alert and oriented x 3, speech normal, good mood/affect, cran nerve 2-12 intact grossly : deferred Principal Diagnosis ACUTE PANCREATITIS Discharge Exam General- oriented x 3, not in distress, speaks in sentences with no effort or a ccessory muscle use Eyes- anicteric Neck- no JVD Lungs- clear BS BL no rales no wheezing Heart- normal rate, regular rhythm; no murmurs Abdomen- normal bowel sounds, nondistended, soft, nontender Extremities- no pretibial edema, no calf tenderness Neuro- alert, oriented x 3; no gross focal neurologic deficits Skin- warm & dry Discharge Data Allergies Allergy/AdvReac Type Severity Reaction Status Date / Time latex Allergy Rash Unverified 07/05/19 21:37 nitrofurantoin AdvReac Vomiting Unverified 07/05/19 21:26 Sulfa (Sulfonamide AdvReac Vomiting Unverified 07/05/19 21:27 Antibiotics) Consultations 07/05/19 20:52 ED Decision to Admit Stat 07/06/19 00:21 Consult Gastroenterology Routine Ordered Studies 07/05/19 18:47 CT angio abdomen pelvis w con Stat CT lumbar spine wo con Stat CT ANGIOGRAM OF THE ABDOMEN AND PELVIS; CT SCAN OF THE LUMBAR SPINE WITHOUT IV CONTRAST CLINICAL HISTORY: Generalized abdominal pain. Low back pain. COMPARISON STUDY: Abdominal ultrasound dated 03/31/2018. TECHNIQUE: Following the IV administration of 120 cc of Optiray 320, CT angiogram of the abdomen and pelvis was performed from the lung bases the proximal femora. Additionally, CT of the lumbar spine is performed from the lower thoracic spine to the sacrum. Images for both examinations are reviewed in the axial, sagittal, and coronal planes. 3-D MIPS images are created and assessed. IV contrast was administered without complication. A dose lowering technique was utilized adhering to the principles of ALARA. CT DOSE: 379.48 mGy.cm FINDINGS: Lower chest: The heart is normal in size and without pericardial effusion. Advanced emphysematous change is seen at the lung bases with bibasilar bullae. No airspace consolidation or pleural effusion is identified. There is a small to moderate hiatal hernia. Liver: The contrast-enhanced liver is enlarged, measuring 19 cm in length. The liver demonstrates diffusely diminished attenuation consistent with hepatic steatosis. There is no intrahepatic or ductal dilatation. The main portal veins appear patent. Gallbladder: Unremarkable. Spleen: Normal in size and attenuation noting heterogeneous arterial phase enhancement. Pancreas: Moderately atrophic and grossly unremarkable. Adrenal glands: Unremarkable. Kidneys: The contrast enhanced kidneys history cortical atrophy and are without hydronephrosis. The kidneys enhance symmetrically. Abdominal aorta and iliac arteries: There is advanced atherosclerotic calcification of the abdominal aorta. 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 The abdominal aorta is otherwise normal in caliber and patent. No dissection is seen. There is atherosclerotic calcification of the iliac arteries bilaterally. There is less than 50% luminal narrowing of the proximal left common iliac artery secondary to focal plaque. The visualized common femoral and superficial femoral arteries are clear. Major branches of the abdominal aorta: The celiac trunk and superior mesenteric artery are patent. Inferior mesenteric arteries not visualized and likely thrombosed. There are 2 left renal arteries and a single right renal artery. These are patent. Hepatic arterial anatomy is conventional. The splenic artery is patent. Bowel: Question mild wall thickening and hyperemia of the distal stomach. There is moderate sigmoid diverticulosis without CT evidence of acute diverticulitis. No bowel obstruction is seen. The appendix is not identified. Peritoneum: There is no intraperitoneal free air or abdominal ascites. Lymphadenopathy: None. Pelvic viscera: The bladder is decompressed and not well evaluated. The uterus is surgically absent. No adnexal lesion is seen. Skeletal structures: The skeletal structures are osteopenic. No lytic or blastic lesions are seen. LUMBAR SPINE: Vertebral body height and alignment are maintained throughout the lumbar spine. There is no evidence of fracture or malalignment. There is straightening of the lumbar lordosis. Small anterior osteophytes are noted. The transverse and spinous processes are intact. There is no evidence of spondylolysis. There is advanced disc space narrowing with endplate sclerosis seen at L3-L4. Mild to moderate disc space narrowing is seen at L4-L5. The remaining disc spaces appear preserved. Posterior disc osteophyte complexes are present at L3-L4, L4-L5, and L5-S1. There is no CT evidence of large disc herniation or high-grade central canal stenosis. The paraspinous soft tissues are within normal limits. IMPRESSION: 1. Question mild wall thickening and hyperemia of the distal stomach. Correlate clinically for evidence of gastritis. 2. Advanced emphysema. 3. 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 4. The abdominal aorta is otherwise normal in caliber. No dissection is seen and the abdominal aorta is widely patent. 5. The inferior mesenteric artery is not identified and presumably thrombosed. 6. The celiac trunk and superior mesenteric arteries are widely patent. 7. There is moderate diverticulosis of the sigmoid colon without CT evidence of acute diverticulitis. 8. No acute bony abnormality is seen involving the lumbar spine. 9. Osteopenia and spondylotic change as above. 10. Hepatomegaly and hepatic steatosis. 11. Additional findings as above. 07/05/19 22:32 US gallbladder Urgent US gallbladder HISTORY: Pain abd pain COMPARISON: None. FINDINGS: Pancreas: Limited visibility. Liver: Fatty infiltration Gallbladder. Trace sludge. No shadowing gallstones. : Bile duct 6 mm. Right kidney negative for hydronephrosis. IMPRESSION: Trace gallbladder sludge. Fatty replacement of the liver. Hospital Course (1) Acute pancreatitis: (1) Acute pancreatitis: per admitting team: This is a 74 yr old F who has a significant pmh of HLD, Fibromyaglia, rheumatoid arthritis, GERD, depression who presents to [facility] secondary to pain all over x 25 minutes. In ED patient was noted to have a lipase of 15,060. Her W BC was 11.7, H&H stable 13.8 and 40.1, Pletal count 239. BUN/creatinine stable at 17 and 1.09. EKG revealed normal sinus rhythm at 80 bpm, no ST or T wave changes. LFTs unremarkable. Urinalysis negative for infection but concentrated. Troponin and CK to WNL. 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 Gallbladder US: Trace gallbladder sludge. Fatty replacement of the liver. given IV fluids, bowel rest lipase level normalized diet advanced to soft, tolerated well GI consulted possible passed gallbladder stone or sludge? 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 There is a 1.4 cm thrombosed saccular aneurysm of the infrarenal abdominal aorta. The abdominal aorta is otherwise normal in caliber and patent. No dissection is seen. There is atherosclerotic calcification of the iliac arteries bilaterally. There is less than 50% luminal narrowing of the proximal left common iliac artery secondary to focal plaque. The visualized common femoral and superficial femoral arteries are clear. Major branches of the abdominal aorta: The celiac trunk and superior mesenteric artery are patent. Inferior mesenteric arteries not visualized and likely thrombosed. There are 2 left renal arteries and a single right renal artery. These are patent. Hepatic arterial anatomy is conventional. The splenic artery is patent. Continue statin therapy start ASA, refer to vascular surgery as outpatient (4) Emphysema of lung: Per CT scan of abdomen/pelvis denies smoking history follow up as outpatient (5) Rheumatoid arthritis: on diclofenac as outpt stable (6) HLD (hyperlipidemia): continue statin therapy (7) DVT prophylaxis: Disposition: discharge to home Follow up with Primary Care Physician in 1 week Follow up with GI in 1-2 weeks Refer to Vascular Surgery Total Time Total Time Spent Total Time Spent (In Minutes): >30 minutes Discharge Plan Discharge Items Patient Disposition: Home - Self-Care Reason For Visit: PANCREATITIS Discharge Diagnosis: ACUTE PANCREATITIS Discharge Goals: Decrease discomfort and Therapeutic intervention Activity: As commented below Activity Comment: RESUME ACTIVITY GRADUALLY TOLERATED Lifting: Wait until after follow-up appointment Exercise/Sports: Wait until after follow-up appointment Driving/Machine Use Comment: NO DRIVING UNTIL RE-EVALUATED BY PRIMARY CARE PHYSICIAN Non-emergency contact: Primary Care Provider Call non-emergency contact if: you have any medication questions and you have a fever Follow-up/Referrals: Janie Avila MD [Primary Care Provider] - 07/13/19 10:45 am Diet: Heart Healthy, Low Fiber, Low Fat, Low Sodium (2gm) and See below Diet Comment: AVOID DAIRY PRODUCTS, OILY/GREASY FOOD Addtl Provider Instructions: PLEASE DRINK PLENTY OF FLUIDS. FOLLOW UP WITH PRIMARY CARE PHYSICIAN NOTED ABOVE. FOLLOW UP WITH [facility] DR. BUENO AT THE [facility] IN 1-2 WEEKS. YOU WILL ALSO NEED AN OUTPATIENT ENDOSCOPIC ULTRASOUND IN 6-8 WEEKS. THE GASTROENTEROLOGY CLINIC WILL CALL YOU FOR THE APPOINTMENT. PLEASE RETURN TO THE ER IMMEDIATELY IF WITH RECURRENCE OF SYMPTOMS. NO ALCOHOL. PLEASE CONSULT WITH YOUR DOCTOR FIRST BEFORE STARTING ANY NEW MEDICATION. Prescriptions: New aspirin [Ecotrin Low Strength] 81 mg Tablet,Delayed Release (Dr/Ec) 81 mg PO QAM 30 Days Qty: 30 RF: 0 Continued trazodone 100 mg tablet 150 mg PO HS RF: 0 simvastatin 40 mg tablet 40 mg PO HS RF: 0 estradiol 2 mg tablet 2 mg PO .UD RF: 0 diclofenac sodium 75 mg tablet,delayed release (DR/EC) 75 mg PO BID RF: 0 epinephrine 0.3 mg/0.3 mL auto-injector 0.3 mg IM .UD PRN (Reason: Anaphylaxis) RF: 0 omeprazole 20 mg capsule,delayed release(DR/EC) 20 mg PO DAILY RF: 0 Stand-Alone Forms: [facility] Discharge Orders: Discharge Order (Routine); Ordered 07/07/19 Ordered By: Tiago Ruffin Admission Data Admit Date/Time: 07/05/19 22:35 Attending Provider: Tiago Ruffin Admit Provider: Deshawn Willett Primary Care Provider: Janie Avila Other Providers: Deshawn Willett ; Tony Cid ; Siobhan Drake ; Janice Ronquillo ; Lai Ladd ; Belkys Jang ; Robina Burnham ; Monie Arias ; Luis Azar ; Juan Alberto Molina ; Micki Bloom ; Sarika Kevin ; Ashley Serrato ; Brittni Bueno ; Camilla Min Service: Medical Other Interventions: Discharge Summary Assessment (RN) Last Done: 07/07/19 15:34 DC Date/Time DO NOT enter until pt leaves facility: 07/07/19 15:49
--- NOTE | 2019-07-09 13:13 | Hospitalist Progress Note ---
Date of Service delayed entry date of service 07/07/19 July 09, 2019 Assessment & Plan (1) Acute pancreatitis: per admitting team: This is a 74 yr old F who has a significant pmh of HLD, Fibromyaglia, rheumatoid arthritis, GERD, depression who presents to [facility] secondary to pain all over x 25 minutes. In ED patient was noted to have a lipase of 15,060. Her W BC was 11.7, H&H stable 13.8 and 40.1, Pletal count 239. BUN/creatinine stable at 17 and 1.09. EKG revealed normal sinus rhythm at 80 bpm, no ST or T wave changes. LFTs unremarkable. Urinalysis negative for infection but concentrated. Troponin and CK to WNL. 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 Gallbladder US: Trace gallbladder sludge. Fatty replacement of the liver. given IV fluids, bowel rest lipase level normalized diet advanced to soft, tolerated well GI consulted possible passed gallbladder stone or sludge? 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 The abdominal aorta is otherwise normal in caliber and patent. No dissection is seen. There is atherosclerotic calcification of the iliac arteries bilaterally. There is less than 50% luminal narrowing of the proximal left common iliac artery secondary to focal plaque. The visualized common femoral and superficial femoral arteries are clear. Major branches of the abdominal aorta: The celiac trunk and superior mesenteric artery are patent. Inferior mesenteric arteries not visualized and likely thrombosed. There are 2 left renal arteries and a single right renal artery. These are patent. Hepatic arterial anatomy is conventional. The splenic artery is patent. Continue statin therapy start ASA, refer to vascular surgery as outpatient (4) Emphysema of lung: Per CT scan of abdomen/pelvis denies smoking history follow up as outpatient (5) Rheumatoid arthritis: on diclofenac as outpt stable (6) HLD (hyperlipidemia): continue statin therapy (7) DVT prophylaxis: Disposition: discharge to home Follow up with Primary Care Physician in 1 week Follow up with GI in 1-2 weeks Refer to Vascular Surgery Subjective ff up for acute pancreatitis seen resting in bedside chair, comfortable, in good spirits states she feels much better overall denies abdominal pain, nausea/vomiting, chest pain, dyspnea, palpitations, dizziness no other symptoms Review of Systems Review of Systems: All systems reviewed & are unremarkable except as noted in HPI & below Physical Exam Physical Exam: General- oriented x 3, not in distress, speaks in sentences with no effort or accessory muscle use Eyes- anicteric Neck- no JVD Lungs- clear BS BL no rales no wheezing Heart- normal rate, regular rhythm; no murmurs Abdomen- normal bowel sounds, nondistended, soft, nontender Extremities- no pretibial edema, no calf tenderness Neuro- alert, oriented x 3; no gross focal neurologic deficits Skin- warm & dry Results & Data Laboratory Results all noted and reviewed (1) Acute pancreatitis Acute pancreatitis complication: unspecified Pancreatitis type: unspecified pancreatitis type Qualified Code(s): K85.90 - Acute pancreatitis without necrosis or infection, unspecified
== END 2019-07-07 15:49 | disposition home or self-care (01) | DRG 439 ==
LOC: ED 18:43 → 4W 22:35

== ENCOUNTER 2024-07-17 10:26 | Inpatient (IN) ==
[2024-07-17 10:56] LABS: Appearance Urine Cloudy (Clear); Bacteria Urine Automated None Seen (None Seen); Bilirubin Urine Negative (Negative); Blood Urine Negative (Negative); Color Urine Yellow; Glucose Urine UA Negative (Negative); Ketones Urine Negative (Negative); Leukocyte Esterase Urine 3+ (Negative); Nitrite Urine Negative (Negative); Protein Urine Negative (Negative); RBC Urine Automated 0-2 /hpf (0-2); Specific Gravity Urine 1.012 (1.000-1.030); Urobilinogen Urine Negative (Negative); WBC Urine Automated >50 /hpf (0-5); pH Urine 5.5 (4.5-7.5)
[2024-07-17 11:00] LABS: Basophils # (auto) 0.07 K/uL (0.00-0.20); Basophils % (auto) 0.8 %; Eosinophils # (auto) 0.37 K/uL (0.00-0.50); Eosinophils % (auto) 4.5 %; Hematocrit (blood only) 37.6 % (37.0-47.0); Immature Granulocytes # (auto) 0.05 K/uL (0.01-0.20); Immature Granulocytes % (auto) 0.6 %; Lymphocytes # (auto) 2.22 K/uL (1.20-3.40); Lymphocytes % (auto) 26.7 %; Mean Corpuscular Hemoglobin 28.2 pg (25.0-34.0); Mean Corpuscular Hgb Conc 31.9 g/dL (32.0-36.0); Mean Corpuscular Volume 88.3 fL (80.0-100.0); Mean Platelet Volume 10.3 fL (9.4-12.4); Monocytes # (auto) 0.83 K/uL (0.11-0.59); Neutrophils # (auto) 4.76 K/uL (1.40-6.50); Neutrophils % (auto) 57.4 %; Platelet Count 210 K/uL (130-400); RDW Coefficient of Variation 14.4 % (11.5-14.5); RDW Standard Deviation 46.2 fL (36.4-46.3); Red Blood Count 4.26 M/uL (4.20-5.40)
[2024-07-17 11:22] LABS: Alanine Aminotransferase 12 U/L (7-52); Albumin Globulin Ratio 1.2 (0.9-2); Albumin Level 4.2 gm/dl (3.4-5.0); Alkaline Phosphatase 52 U/L (34-104); Anion Gap 7 (3-11); Aspartate Aminotransferase 14 U/L (13-39); BUN Creatinine Ratio 16.2 (10-20); Bilirubin,Total 0.4 mg/dl (0.2-1.0); Blood Urea Nitrogen 21 mg/dl (6-23); Calcium 9.3 mg/dl (8.6-10.3); Carbon Dioxide 24 mmol/L (21-32); Chloride 102 mmol/L (98-107); Creatinine Clr Calc Pharmacy 30.5 ml/min; Est GFR (African American) 44.6 ml/min; Est GFR (Non-African American) 38.4 ml/min; Globulin 3.4 gm/dl (2.5-4.0); Glucose 89 mg/dl (70-99(Fasting)); Lipase 33 U/L (11-82); Potassium 4.3 mmol/L (3.5-5.1); Sodium 133 mmol/L (136-145); Total Protein 7.6 gm/dl (6.0-8.3)
[2024-07-17] MEDS: OPTIRAY 320 100ml IV ONE (12:26)
--- NOTE | 2024-07-17 12:59 | Emergency Department Note ---
Impression & Plan Pyelonephritis, Back pain, Acute hyponatremia ED Provider Note NAME: AYANA AGUILAR AGE: 79 SEX: F : 1945 ARRIVES VIA: Walk-In INFORMANT: Patient ED PROVIDER(S): Rian Johnson DO CHIEF COMPLAINT: back pain and abdominal pain HPI: Patient patient is an 79-year-old female who presents to the ER with a past medical history of IBS, fibromyalgia, anxiety who presents to the ER for back pain and belly pain which has been present for the past 8 months. She notes that she has been treated off and on for UTIs. She denies any dysuria, urgency, or frequency. Currently on Cipro. No headache or change in vision. No chest pain or shortness of breath. She has been on antibiotic for the past 5 days. She notes that the back pain is worse with twisting, turning, and bending. ADDITIONAL HISTORY OBTAINED: Per HPI Chronic Medical/Social Conditions Affecting Care: Per HPI PAST MEDICAL HISTORY:See Below PAST SURGICAL HISTORY:See Below FAMILY HISTORY:See Below SOCIAL HISTORY:See Below HOME MEDICATIONS:See Below ALLERGIES:See Below VITALS:See Below PHYSICAL EXAMINATION: GENERAL: Sitting up in bed, alert, well appearing, well nourished, no distress, non-toxic EYE EXAM: normal conjunctiva OROPHARYNX: no exudate, no erythema, lips, buccal mucosa, and tongue normal and mucous membranes are moist NECK: supple, no nuchal rigidity, no adenopathy, non-tender LUNGS: Clear to auscultation. Normal chest wall mechanics HEART: no murmurs, S1 normal and S2 normal ABDOMEN: abdomen soft, non-tender, normo-active bowel sounds, no masses, no rebound or guarding. BACK: Back is symmetrical on inspection and there is no deformity, paraspinal tenderness in the lower lumbar region bilaterally, no CVA tenderness. UPPER EXTREMITIES: upper extremities are grossly normal. LOWER EXTREMITIES: No pitting edema. NEURO EXAM: Normal sensorium, cranial nerves II-XII intact, normal speech, no weakness of arms, no weakness of legs. MEDICAL DECISION MAKING: Patient is an 79-year-old female who presents ER for above-stated complaint. IV was established medicals obtained. Labs show no significant leukocytosis or anemia. BMP was unremarkable with a creatinine 1.3. LFTs bilirubin and lipase was normal. ESR is elevated. UA consistent with UTI although slightly contaminated with leuks and whites. Patient was given IV Rocephin. She is been on multiple days of oral antibiotics with no improvement. She still has back pain and belly pain. CT abdomen pelvis shows inflammation of the bladder. She was updated bedside. Was given IV Zosyn due to allergies and to cover Pseudomonas. Patient was updated bedside discussed with the hospitalist for further evaluation management and treatment. Consults/Care Managements Discussions: Per MDM Triage Nursing notes reviewed. Limited review of prior medical records performed Vital Signs: reviewed and remarkable for HTN Differential diagnosis: Differential diagnoses includes but is not limited to gastritis, peptic ulcer disease, GERD, gallbladder disease, pancreatitis, small bowel obstruction, appendicitis, diverticulitis, hernia, urinary tract infection, torsion, perforation, trauma, infectious. ER treatment provided: See below Diagnostics interpreted by me include EKG and cardiac monitoring as listed below: -Cardiac Monitoring: An order was placed for continuous cardiac monitoring. The monitor shows a rate of 65 with sinus rhythm. -ECG: none -Laboratory studies:Interpreted by me as stated above in MDM and shown below. Imaging studies: Xrays: As interpreted by me:none CTs show: CT abdomen pelvis per my preliminary interpretation showed no obvious bowel obstruction CT abdomen pelvis per radiologist described above Procedures:none Critical Care: None Past Med/Surg History Problem List (Updated 07/17/24 @ 15:19 by Rob Blum MD) Acute pyelonephritis Urinary incontinence Acute UTI Chronic chest wall pain Dysphagia Hiatal hernia IBS (irritable bowel syndrome) Barretts esophagus HLD (hyperlipidemia) Rheumatoid arthritis Fibromyalgia Saccular aneurysm PVD (peripheral vascular disease) Anxiety Arthritis Medical History (Updated 07/17/24 @ 15:19 by Rob Blum MD) Urinary tract infection history of Insomnia Acute pancreatitis history of Surgical History History of hysterectomy History of cholecystectomy History of cataract surgery both eyes History of colonoscopy 9 years ago History of esophagogastroduodenoscopy (EGD) 9 years ago History of bladder surgery tacking x2 most recent 2018 History of rectocele PT DENIES History of appendectomy History of hysterectomy with bilateral oophorectomy Family History Aunt Cerebral aneurysm Other No significant family history Denies family history of Diabetes Deep vein thrombosis Coronary heart disease COPD (chronic obstructive pulmonary disease) Cancer Hypertension Social History Smoking Status: Never smoker Second Hand Exposure: No; Do You Dip or Chew Tobacco: No; Hx Alcohol Use: No Hx Substance Use: No Preferred Language: Turkmen Communication Ability: Effective Digital Retoucher Required: No Beliefs That Will Affect Care: None marital status: / Current Living Situation: Significant Other Current Living Situation Comment: Lives with Kuldeep current occupational status: retired current occupation: worked in a [employer] Feels Safe at Home: Yes Childhood Exposure to Second-Hand Smoke: No Assistive Devices: Denture - Upper and Glasses Allergies Allergies Allergy/AdvReac Type Severity Reaction Status Date / Time insect venom Allergy Severe ANAPHYLAXIS Verified 07/17/24 14:33 WITH YELLOW JACKET BITE latex Allergy Unknown Rash Verified 07/17/24 14:33 adhesive tape AdvReac Unknown PULLS SKIN Verified 07/17/24 14:33 OFF cephalexin [From Keflex] AdvReac Unknown NAUSEA Verified 07/17/24 14:33 VOMITING gabapentin [From Neurontin] AdvReac Unknown DIZZINESS, Verified 07/17/24 14:33 "SPACED OUT" nitrofurantoin AdvReac Unknown Vomiting,PASSED Verified 07/17/24 14:33 OUT Sulfa (Sulfonamide AdvReac Unknown Vomiting Verified 07/17/24 14:33 Antibiotics) Home Meds Home Medications Medication Instructions Recorded Confirmed diclofenac sodium 75 mg 75 mg PO BID PRN Pain 07/05/19 07/17/24 tablet,delayed release epinephrine 0.3 mg/0.3 mL 0.3 mg IM UD PRN Anaphylaxis 07/05/19 07/17/24 injection, auto-injector trazodone 100 mg tablet 100 - 150 mg PO HS 07/05/19 07/17/24 cholecalciferol (vitamin D3) 25 25 mcg PO QAM 05/16/24 07/17/24 mcg (1,000 unit) capsule duloxetine 20 mg capsule,delayed 20 mg PO QAM 05/16/24 07/17/24 release ibuprofen 200 mg tablet (Advil) 200 mg PO Q6H PRN Pain 05/16/24 07/17/24 mecobalamin (vitamin B12) 1,000 1,000 mcg sublingual DAILY 05/16/24 07/17/24 mcg disintegrating tablet,sublingual mirabegron 50 mg tablet,extended 50 mg PO HS 05/16/24 07/17/24 release 24 hr (Myrbetriq) simvastatin 40 mg tablet 40 mg PO HS 05/16/24 07/17/24 zinc amino acid chelate 50 mg 50 mg PO DAILY 05/16/24 07/17/24 tablet acetaminophen 500 mg tablet 500 mg PO Q6H PRN Pain 07/17/24 07/17/24 colestipol 1 gram tablet 1 g PO DAILY 07/17/24 07/17/24 estradiol 1 mg tablet 1 mg PO QAM 07/17/24 07/17/24 omeprazole 20 mg capsule,delayed 20 mg PO DAILYBB 07/17/24 07/17/24 release pregabalin 50 mg capsule 50 mg PO BID 07/17/24 07/17/24 Previous Rx's Medication Instructions Recorded phenazopyridine 100 mg tablet 100 mg PO Q8H PRN pain #14 tabs 06/26/24 (Pyridium) Results & Data (ED) Vital Signs Vital Signs - 24 hr 07/17/24 10:28 07/17/24 14:11 07/17/24 14:28 Temperature 36.9 C Temperature Source Oral Pulse Rate 69 63 Pulse Rate [Apical] 72 Pulse Rhythm [Apical] Regular Pulse Strength [Apical] Normal Respiratory Rate 18 18 Respiratory Effort / Characteristics Non-Labored Respiratory Depth Normal Respiratory Pattern Regular Blood Pressure 191/79 H Blood Pressure [Left Arm] 189/84 H Blood Pressure Mean 116 Blood Pressure Mean [Left Arm] 119 Blood Pressure Position Sitting Pulse Oximetry 97 99 Oxygen Delivery Method Room Air Room Air Sepsis Recent Fever Within 48 Hours No Sepsis New/Unexplained Change in Mental Status No Sepsis Action Taken by Nursing No Action Required Laboratory Data 07/17/24 10:37 07/17/24 10:37 Lab Results 07/17/24 07/17/24 Range/Units 10:35 10:37 WBC 8.30 (4.8-10.8) K/ul RBC 4.26 (4.20-5.40) M/uL Hgb 12.0 (12.0-16.0) g/dl Hct 37.6 (37.0-47.0) % MCV 88.3 (80.0-100.0) fL MCH 28.2 (25.0-34.0) pg MCHC 31.9 L (32.0-36.0) g/dL RDW Std Deviation 46.2 (36.4-46.3) fL RDW Coeff of [place] 14.4 (11.5-14.5) % Plt Count 210 (130-400) K/uL MPV 10.3 (9.4-12.4) fL Immature Gran % (Auto) 0.6 % Neut % (Auto) 57.4 % Lymph % (Auto) 26.7 % [place] % (Auto) 10.0 % Eos % (Auto) 4.5 % Baso % (Auto) 0.8 % Neut # (Auto) 4.76 (1.40-6.50) K/uL Lymph # (Auto) 2.22 (1.20-3.40) K/uL [place] # (Auto) 0.83 H (0.11-0.59) K/uL Eos # (Auto) 0.37 (0.00-0.50) K/uL Baso # (Auto) 0.07 (0.00-0.20) K/uL Immature Gran # (Auto) 0.05 (0.01-0.20) K/uL ESR 39 H (0-30) mm/hr Sodium 133 L (136-145) mmol/L Potassium 4.3 (3.5-5.1) mmol/L Chloride 102 (98-107) mmol/L Carbon Dioxide 24 (21-32) mmol/L Anion Gap 7 (3-11) BUN 21 (6-23) mg/dl Creatinine 1.30 H (0.6-1.2) mg/dl Est Cr Clr Drug Dosing 30.5 ml/min Est GFR ( Amer) 44.6 ml/min Est GFR (Non-Af Amer) 38.4 ml/min BUN/Creatinine Ratio 16.2 (10-20) Glucose 89 (70-99(Fasting)) mg/dl Calcium 9.3 (8.6-10.3) mg/dl Magnesium 2.1 (1.7-2.4) mg/dl Total Bilirubin 0.4 (0.2-1.0) mg/dl AST 14 (13-39) U/L ALT 12 (7-52) U/L Alkaline Phosphatase 52 (34-104) U/L Total Protein 7.6 (6.0-8.3) gm/dl Albumin 4.2 (3.4-5.0) gm/dl Globulin 3.4 (2.5-4.0) gm/dl Albumin/Globulin Ratio 1.2 (0.9-2) Lipase 33 (11-82) U/L Urine Color Yellow Urine Appearance Cloudy A (Clear) Urine pH 5.5 (4.5-7.5) Ur Specific [place] 1.012 (1.000-1.030) Urine Protein Negative (Negative) Urine Glucose (UA) Negative (Negative) Urine Ketones Negative (Negative) Urine Blood Negative (Negative) Urine Nitrite Negative (Negative) Urine Bilirubin Negative (Negative) Urine Urobilinogen Negative (Negative) Ur Leukocyte Esterase 3+ H (Negative) Urine WBC (Auto) >50 H (0-5) /hpf Urine RBC (Auto) 0-2 (0-2) /hpf U Hyaline Cast (Auto) 3-5 H (0-2) /lpf U Epithel Cells (Auto) 6-10 H (0-2) /hpf Urine Bacteria (Auto) None Seen (None Seen) Administered Medications Discontinued Medications Sodium Chloride (Nss) 1,000 mls @ 999 mls/hr IV .Q1H1M ONE Stop: 07/17/24 14:37 Last Infusion: 07/17/24 15:20 Dose: Infused Documented By: Admin: 07/17/24 14:23 Dose: 999 mls/hr Documented By: ROQUE Piperacillin Sod/Tazobactam Sod (Zosyn) 4.5 gm in 100 mls @ 200 mls/hr IV NOW ONE Stop: 07/17/24 14:07 Last Infusion: 07/17/24 14:50 Dose: Infused Documented By: Admin: 07/17/24 14:23 Dose: 200 mls/hr Documented By: ROQUE Ioversol (Optiray 320 100ml) 94 ml IV ONCE ONE Stop: 07/17/24 12:27 Last Admin: 07/17/24 12:26 Dose: 94 ml Documented By: ADELA Ondansetron HCl (Ondansetron Inj 2 Mg/Ml 2 Ml Vial) 4 mg IV NOW STA Stop: 07/17/24 13:38 Last Admin: 07/17/24 14:23 Dose: 4 mg Documented By: SRL Imaging Data Radiologist's Impression: Abdomen/Pelvis CT 07/17/24 12:08 CT SCAN OF THE ABDOMEN AND PELVIS WITH IV CONTRAST CLINICAL HISTORY: Generalized abdominal pain. COMPARISON STUDY: Abdominal CT dated 07/05/2019. TECHNIQUE: Following the IV administration of 94 cc of Optiray 320, CT scan of the abdomen and pelvis is performed from the lung bases to the proximal femora. Images are reviewed in the axial, sagittal, and coronal planes. IV contrast was administered without complication. A dose lowering technique was utilized adhering to the principles of ALARA. CT DOSE: 907.21 mGy.cm FINDINGS: Lung bases: The heart is normal in size and without pericardial effusion. Emphysematous change is seen at both lung bases. Large bullae are seen bilaterally, with bibasilar scarring/atelectasis. There is no airspace consolidation or pleural effusion. A small hiatal hernia is noted. Liver: The contrast-enhanced liver is normal in size, contour, and attenuation. There is mild intrahepatic biliary ductal dilatation. The hepatic veins and portal veins are patent. Gallbladder: Surgically absent noting clips in the gallbladder fossa. Spleen: Normal in size and attenuation. Pancreas: Unremarkable. Adrenal glands: Unremarkable. Kidneys: The contrast enhanced kidneys demonstrate mild cortical atrophy and are without hydronephrosis. The kidneys enhance symmetrically. Abdominal vasculature: There is advanced atherosclerotic calcification and ectasia of the abdominal aorta. A 2.2 cm partially thrombosed saccular aneurysm is seen eccentric to left on axial image #113. Bowel: There is moderate to advanced colonic diverticulosis without CT evidence of acute diverticulitis. No bowel obstruction is seen. The appendix is not identified and reported surgically absent. Peritoneum: There is no intraperitoneal free air or abdominal ascites. Lymphadenopathy: None. Pelvic viscera: The bladder wall appears mildly thickened. The uterus is surgically absent. No adnexal lesion is seen. Skeletal structures: The skeletal structures are osteopenic. There is mild to moderate lumbosacral spondylosis. No lytic or blastic lesions are seen. IMPRESSION: 1. The bladder wall appears thickened. Correlate with clinical findings and urinalysis. 2. Colonic diverticulosis without CT evidence of acute diverticulitis. 3. Emphysema. 4. Additional findings as above. ACT 112: Negative or not required by law. Electronically signed by: Jerome Mir M.D. 07/17/2024 1:26 PM Discharge Plan Visit Data Chief Complaint: GI Assessment Stated Complaint: ABD PROBLEMS, REF BY DOC ED Provider: Rian Johnson Discharge Problem: Pyelonephritis, Back pain, Acute hyponatremia Forms Stand Alone Forms: My [facility] Prescriptions Prescriptions: No Action duloxetine 20 mg capsule,delayed release(DR/EC) 20 mg PO QAM cholecalciferol (vitamin D3) 25 mcg (1,000 unit) capsule 25 mcg PO QAM mecobalamin (vitamin B12) 1,000 mcg tablet,disintegrating 1,000 mcg sublingual DAILY Rx Instructions: place tablet under tongue and allow to dissolve for at least30 secs before swallowing zinc amino acid chelate 50 mg tablet 50 mg PO DAILY mirabegron [Myrbetriq] 50 mg tablet extended release 24 hr 50 mg PO HS ibuprofen [Advil] 200 mg tablet 200 mg PO Q6H PRN (Reason: Pain) simvastatin 40 mg tablet 40 mg PO HS trazodone 100 mg tablet 100 - 150 mg PO HS diclofenac sodium 75 mg tablet,delayed release (DR/EC) 75 mg PO BID PRN (Reason: Pain) epinephrine 0.3 mg/0.3 mL auto-injector 0.3 mg IM UD PRN (Reason: Anaphylaxis) Rx Instructions: Patient believes this medication is . phenazopyridine [Pyridium] 100 mg tablet 100 mg PO Q8H PRN (Reason: pain) Qty: 14 0RF acetaminophen [Tylenol Ex Str Rapid Release] 500 mg Tablet 500 mg PO Q6H PRN (Reason: Pain) estradiol 1 mg tablet 1 mg PO QAM omeprazole 20 mg capsule,delayed release(DR/EC) 20 mg PO DAILYBB colestipol 1 gram tablet 1 g PO DAILY pregabalin 50 mg capsule 50 mg PO BID Referrals Referrals: Autumn Dixon DO [Primary Care Provider] - Discharge Problem: Back pain Qualifiers: Back pain location: low back pain Chronicity: acute Back pain laterality: b ilateral Sciatica presence: unspecified whether sciatica present Qualified Code(s): M54.50 - Low back pain, unspecified
--- NOTE | 2024-07-17 13:27 | CT Scan Report ---
CT SCAN OF THE ABDOMEN AND PELVIS WITH IV CONTRAST CLINICAL HISTORY: Generalized abdominal pain. COMPARISON STUDY: Abdominal CT dated 07/05/2019. TECHNIQUE: Following the IV administration of 94 cc of Optiray 320, CT scan of the abdomen and pelvi s is performed from the lung bases to the proximal femora. Images are reviewed in the axial, sagittal , and coronal planes. IV contrast was administered without complication. A dose lowering technique wa s utilized adhering to the principles of ALARA. CT DOSE: 907.21 mGy.cm FINDINGS: Lung bases: The heart is normal in size and without pericardial effusion. Emphysematous change is see n at both lung bases. Large bullae are seen bilaterally, with bibasilar scarring/atelectasis. There i s no airspace consolidation or pleural effusion. A small hiatal hernia is noted. Liver: The contrast-enhanced liver is normal in size, contour, and attenuation. There is mild intrahe patic biliary ductal dilatation. The hepatic veins and portal veins are patent. Gallbladder: Surgically absent noting clips in the gallbladder fossa. Spleen: Normal in size and attenuation. Pancreas: Unremarkable. Adrenal glands: Unremarkable. Kidneys: The contrast enhanced kidneys demonstrate mild cortical atrophy and are without hydronephros is. The kidneys enhance symmetrically. Abdominal vasculature: There is advanced atherosclerotic calcification and ectasia of the abdominal [place]. A 2.2 cm partially thrombosed saccular aneurysm is seen eccentric to left on axial image #113. Bowel: There is moderate to advanced colonic diverticulosis without CT evidence of acute diverticulit is. No bowel obstruction is seen. The appendix is not identified and reported surgically absent. Peritoneum: There is no intraperitoneal free air or abdominal ascites. Lymphadenopathy: None. Pelvic viscera: The bladder wall appears mildly thickened. The uterus is surgically absent. No adnexa l lesion is seen. Skeletal structures: The skeletal structures are osteopenic. There is mild to moderate lumbosacral sp ondylosis. No lytic or blastic lesions are seen. IMPRESSION: 1. The bladder wall appears thickened. Correlate with clinical findings and urinalysis. 2. Colonic diverticulosis without CT evidence of acute diverticulitis. 3. Emphysema. 4. Additional findings as above. ACT 112: Negative or not required by law. Electronically signed by: Jerome Mir M.D. 07/17/2024 1:26 PM
[2024-07-17] MEDS: ONDANSETRON INJ 2 MG/ML 2 ML VIAL IV STA (14:23)
[2024-07-17] MEDS: SODIUM CHLORIDE 0.9% 1,000 ML IV ONE (14:23)
[2024-07-17] MEDS: PIPERACILLIN/TAZOBACTAM 4.5 GM/100 ML BAG IV ONE (14:23)
--- NOTE | 2024-07-17 15:07 | History & Physical Report ---
Date of Service July 17, 2024 Assessment & Plan (1) Acute pyelonephritis: Plan: Suspected CVA tenderness on exam however she has pain out of proportion to lab/imaging which appears consistent with prior hospitalizations (pancreatitis with severity 15/10 pain). I suspect her RA/fibromyalgia is why she is currently in so much pain but given definitive prior infections, positive urine culture on July 12 and bladder thickening on CT will treat as suspected pyelonephritis until repeat urine culture resulted. However ciprofloxacin should have adequately treated July 12 infection with Enterobacter Cloacae complex Follow up repeat urine culture IV cefepime (2) Low back pain: Plan: Pyelo vs. fibromyalgia/RA Acetaminophen 1g PO TID 2nd line Toradol 3rd line oxycodone Consider increasing pregabalin if not well controlled despite treatment for UTI as above or if UTI ruled out (3) Rheumatoid arthritis: Plan: Reports diagnosed 15 years ago by rheumatology but never on DMARDs. Hands are distinctively RA appearing on exam. This does not appear to be a diagnosis carried over from her [facility] to [facility] PCP notes and may have been lost in transition Many chronic complaints which could be attributed to this (fatigue, chest pains, flares/swelling of joints, neuropathy) and fibromyalgia common in patients with RA ESR, CRP, FELICIA, RF, anti-CCP antibodies will be sent with AM labs for follow up with PCP Will defer any treatment pending definitive clearance of her current infection but consult rheumatology for recommendations follow treatment (4) Fibromyalgia: Plan: Pregabalin 50mg PO BID (5) Urinary incontinence: Plan: Continue mirabegron Plan VTE Prophylaxis - heparin 5000 units SQ BID Diet - regular Disposition - admit to med/surg Admission and Anticipated Discharge Date Admission Date: July 17, 2024 History of Present Illness Chief Complaint: Low back and abdominal pain Primary Care Provider: Autumn Dixon DO Natalie Salgado is an 79-year-old female who presents to the ER sent by PCP due to concerns for UTI and low back pain. The patient reports ongoing problems all summer with UTIs. Timeline difficult due to lack of notes from outside hospitals and patient recollection but generally... Initial event appears to have been in March at [facility] in [place], [place]. She reports urine smell and generalized confusion. She was prescribed ciprofloxacin on April 08 for 7 days. She reports a second UTI in April again with foul odor, a lot of pain and episode of syncope. She was hospitalized at that time and treated with unknown antibiotic but she does not have appeared to be prescribed any antibiotic on discharge. The third episode she just had pain (abdominal and back) although ER also noted dysuria at that time. She came to [facility] ER and was diagnosed with acute pyelonephritis and subsequent culture grew mixed lucas. She was discharged from the ER and treated with 10 days of cefdinir. She reports since this time her abdominal and back pain have not resolved and the cefdinir did not appear to make any difference other than give her diarrhea. She followed up with her PCP and urine culture taken on July 12 growing Enterobacter Cloacae Complex resistant to Augmentin/Ampicillin/Unasyn/Cefazolin/Ceftriaxone with intermediate resistance to Zosyn. She ws treated with 5 days of ciprofloxacin however when this failed to treat her pain she was advised by her PCP today to come to the ER. She notes severity 10/10 abdominal and back pain. No radiation down her legs. No nausea, vomiting, change in bowels. She currently denies any specific urinary complaints such as dysuria, change in urinary frequency/small/color. Despite her fibromyalgia she reports this pain is new since June 26 but never resolved since then. She notes a significant history of repeated bladder suspension surgeries in [place] 3-4 years ago but was told she cannot have another operation. She has a history of urinary urgency but this is well controlled on Myrbetriq. She has a number of more chronic complaints over the last 1-2 years including generalized fatigue, worsening joint deterioration of her hands, bilateral lower rib pain (worse on palpation), worsening neuropathy. She notes a diagnosis of rheumatoid arthritis 15 years ago but reports never being on DMARDs. She has never thought of her current problems as related to the rheumatoid arthritis. Notably she recently saw the pain clinic and it was also recommended to follow up with rheumatology for consideration of DMARDs. Allergies Allergy/AdvReac Type Severity Reaction Status Date / Time insect venom Allergy Severe ANAPHYLAXIS Verified 07/17/24 14:33 WITH YELLOW JACKET BITE latex Allergy Unknown Rash Verified 07/17/24 14:33 adhesive tape AdvReac Unknown PULLS SKIN Verified 07/17/24 14:33 OFF cephalexin [From Keflex] AdvReac Unknown NAUSEA Verified 07/17/24 14:33 VOMITING nitrofurantoin AdvReac Unknown Vomiting,PASSED Verified 07/17/24 14:33 OUT Sulfa (Sulfonamide AdvReac Unknown Vomiting Verified 07/17/24 14:33 Antibiotics) Home Medications Medication Instructions Recorded Confirmed Type diclofenac sodium 75 mg 75 mg PO BID PRN Pain 07/05/19 07/17/24 History tablet,delayed release epinephrine 0.3 mg/0.3 mL 0.3 mg IM UD PRN Anaphylaxis 07/05/19 07/17/24 History injection, auto-injector trazodone 100 mg tablet 100 - 150 mg PO HS 07/05/19 07/17/24 History cholecalciferol (vitamin D3) 25 25 mcg PO QAM 05/16/24 07/17/24 History mcg (1,000 unit) capsule duloxetine 20 mg capsule,delayed 20 mg PO QAM 05/16/24 07/17/24 History release ibuprofen 200 mg tablet (Advil) 200 mg PO Q6H PRN Pain 05/16/24 07/17/24 History mecobalamin (vitamin B12) 1,000 1,000 mcg sublingual DAILY 05/16/24 07/17/24 History mcg disintegrating tablet,sublingual mirabegron 50 mg tablet,extended 50 mg PO HS 05/16/24 07/17/24 History release 24 hr (Myrbetriq) simvastatin 40 mg tablet 40 mg PO HS 05/16/24 07/17/24 History zinc amino acid chelate 50 mg 50 mg PO DAILY 05/16/24 07/17/24 History tablet phenazopyridine 100 mg tablet 100 mg PO Q8H PRN pain #14 tabs 06/26/24 07/17/24 Rx (Pyridium) acetaminophen 500 mg tablet 500 mg PO Q6H PRN Pain 07/17/24 07/17/24 History colestipol 1 gram tablet 1 g PO DAILY 07/17/24 07/17/24 History estradiol 1 mg tablet 1 mg PO QAM 07/17/24 07/17/24 History omeprazole 20 mg capsule,delayed 20 mg PO DAILYBB 07/17/24 07/17/24 History release pregabalin 50 mg capsule 50 mg PO BID 07/17/24 07/17/24 History Past Med/Surg History Problem List (Updated 07/18/24 @ 02:31 by Rob Blum MD) Low back pain Acute pyelonephritis Urinary incontinence Acute UTI Chronic chest wall pain Dysphagia Hiatal hernia IBS (irritable bowel syndrome) Barretts esophagus HLD (hyperlipidemia) Rheumatoid arthritis Fibromyalgia Saccular aneurysm PVD (peripheral vascular disease) Anxiety Arthritis Medical History (Updated 07/18/24 @ 02:31 by Rob Blum MD) Urinary tract infection history of Insomnia Acute pancreatitis history of Surgical History History of hysterectomy History of cholecystectomy History of cataract surgery both eyes History of colonoscopy 9 years ago History of esophagogastroduodenoscopy (EGD) 9 years ago History of bladder surgery tacking x2 most recent 2018 History of rectocele PT DENIES History of appendectomy History of hysterectomy with bilateral oophorectomy Family History Aunt Cerebral aneurysm Other No significant family history Denies family history of Diabetes Deep vein thrombosis Coronary heart disease COPD (chronic obstructive pulmonary disease) Cancer Hypertension Social History Smoking Status: Never smoker Second Hand Exposure: No; Do You Dip or Chew Tobacco: No; Tobacco Cessation Education Requested by Patient: No Hx Alcohol Use: No Hx Substance Use: No Preferred Language: Turkmen Communication Ability: Effective Senior Qualitative Researcher Required: No Beliefs That Will Affect Care: None marital status: / Current Living Situation: Other Current Living Situation Comment: with Boyfriend current occupational status: retired current occupation: worked in a [email or web address] Feels Safe at Home: Yes Safety Concerns: Feels Safe At This Time Childhood Exposure to Second-Hand Smoke: No Assistive Devices: Cane, Denture - Upper and Glasses Review of Systems Review of Systems: All systems reviewed & are unremarkable except as noted in HPI & below Physical Exam Constitutional: well developed and + frail appearing; no acute distress Eyes: PERRL, conjunctivae normal, anicteric sclerae ENMT: external ear and nose normal, oropharynx normal Respiratory: normal respiratory effort, lungs clear to auscultation Cardiovascular: RRR, no murmur, no edema Gastrointestinal (Abdomen): Inspection/Auscultation: abdomen normal to inspection; abdomen not distended Percussion/Palpation: + abdomen tender (generalized R > L), + guarding and abdomen soft; abdomen not rigid Musculoskeletal: MCP without significant DIP swelling of hands b/l with ulnar deviation of MCP joints and Boutonniers deformity of both thumbs Skin: no rashes, warm and dry Neurologic: moves all extremities and awake; not confused Psychiatric: A+Ox3, euthymic affect Genitourinary: + CVA tenderness (b/l R > L) Results & Data Results & Data Vital Signs (Past 12 Hours) Vital Signs Temp Pulse Pulse Resp BP BP Pulse Ox 07/17/24 14:28 63 07/17/24 14:11 72 18 189/84 H 99 07/17/24 10:28 36.9 C 69 18 191/79 H 97 O2 Del Method 07/17/24 14:28 07/17/24 14:11 Room Air 07/17/24 10:28 Room Air Laboratory Results Abnormal lab results 07/17/24 07/17/24 Range/Units 10:35 10:37 MCHC 31.9 L (32.0-36.0) g/dL Carroll # (Auto) 0.83 H (0.11-0.59) K/uL Sodium 133 L (136-145) mmol/L Creatinine 1.30 H (0.6-1.2) mg/dl Urine Appearance Cloudy A (Clear) Ur Leukocyte Esterase 3+ H (Negative) Urine WBC (Auto) >50 H (0-5) /hpf U Hyaline Cast (Auto) 3-5 H (0-2) /lpf U Epithel Cells (Auto) 6-10 H (0-2) /hpf Diagnostic Findings CT SCAN OF THE ABDOMEN AND PELVIS WITH IV CONTRAST CLINICAL HISTORY: Generalized abdominal pain. COMPARISON STUDY: Abdominal CT dated 07/05/2019. TECHNIQUE: Following the IV administration of 94 cc of Optiray 320, CT scan of the abdomen and pelvis is performed from the lung bases to the proximal femora. Images are reviewed in the axial, sagittal, and coronal planes. IV contrast was administered without complication. A dose lowering technique was utilized adhering to the principles of ALARA. CT DOSE: 907.21 mGy.cm FINDINGS: Lung bases: The heart is normal in size and without pericardial effusion. Emphysematous change is seen at both lung bases. Large bullae are seen bilaterally, with bibasilar scarring/atelectasis. There is no airspace consol idation or pleural effusion. A small hiatal hernia is noted. Liver: The contrast-enhanced liver is normal in size, contour, and attenuation. There is mild intrahepatic biliary ductal dilatation. The hepatic veins and portal veins are patent. Gallbladder: Surgically absent noting clips in the gallbladder fossa. Spleen: Normal in size and attenuation. Pancreas: Unremarkable. Adrenal glands: Unremarkable. Kidneys: The contrast enhanced kidneys demonstrate mild cortical atrophy and are without hydronephrosis. The kidneys enhance symmetrically. Abdominal vasculature: There is advanced atherosclerotic calcification and ectasia of the abdominal aorta. A 2.2 cm partially thrombosed saccular aneurysm is seen eccentric to left on axial image #113. Bowel: There is moderate to advanced colonic diverticulosis without CT evidence of acute diverticulitis. No bowel obstruction is seen. The appendix is not identified and reported surgically absent. Peritoneum: There is no intraperitoneal free air or abdominal ascites. Lymphadenopathy: None. Pelvic viscera: The bladder wall appears mildly thickened. The uterus is surgically absent. No adnexal lesion is seen. Skeletal structures: The skeletal structures are osteopenic. There is mild to moderate lumbosacral spondylosis. No lytic or blastic lesions are seen. IMPRESSION: 1. The bladder wall appears thickened. Correlate with clinical findings and u rinalysis. 2. Colonic diverticulosis without CT evidence of acute diverticulitis. 3. Emphysema. 4. Additional findings as above. Medications Administered ER medications given: Normal saline 1 L bolus Ondansetron 4 mg IV Zosyn 4.5 g IV Code Status & VTE Plan Code Status Full VTE Prophylaxis Plan VTE Prophylaxis will be ordered: Yes PG Care Time/CCT Total # of Minutes Spent Total Time Spent with Patient: Total time spent is greater than 50% in coordination of care (as documented) at patient's floor/unit and/or counseling patient: Coding Level of Care Code 20982 INT INP/OBS CARE 3/75MIN Diagnoses Acute pyelonephritis N10 Low back pain M54.50 Rheumatoid arthritis M06.9 Fibromyalgia M79.7 Urinary incontinence R32
[2024-07-17 15:44] LABS: Magnesium 2.1 mg/dl (1.7-2.4)
[2024-07-17 15:59] LABS: C Reactive Protein < 0.50 mg/dl (0-0.5)
[2024-07-17] MEDS ORDERED: oxyCODONE HCL IR 5 MG TAB (IMMEDIATE RELEASE) PO PRN (17:21)
[2024-07-17] MEDS: ACETAMINOPHEN 500 MG TAB PO SCH (17:36)
[2024-07-17] MEDS: CEFEPIME 2,000 MG in SYRINGE 0 ML IV SCH (17:36)
[2024-07-17 17:51] LABS: Creatine Kinase 51 U/L (26-192)
[2024-07-17] MEDS: metroNIDAZOLE 500 MG/100 ML BAG IV SCH (17:55)
[2024-07-17] MEDS: oxyCODONE HCL IR 5 MG TAB (IMMEDIATE RELEASE) PO PRN (17:56)
--- OUTSIDE RECORDS SUMMARY | 2024-07-17 19:54 | External Medical Summary | Continuity of Care Document ---
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 Name Role Phone Autumn Dixon Primary Care Physicia n [phone] Encounter [facility] [id number] Date(s): 07/12/24 - 07/12/24 [facility] [address] Medical [facility] [address] [place] [address], [address] [address] [phone] Encounter Diagnosis Frequency of micturition(Final) - Urinary tract infection(Discharge Diagnosis) - 07/13/24 Fecal incontinence(Discharge Diagnosis) - 05/03/24 Discharge Disposition: Home or Self Care Attending Physician: DO Dixon Gretchen Elizabeth Referring Physician: DO Dixon Gretchen Elizabeth Allergies, Adverse Reactions, Alerts Substance Criticality Severity Reaction Reaction Severity Status gabapentin confusion Active sulfa drugs airway edema Activ e Keflex airway edema Active Bee stings anaphylaxis Active Assessment and Plan Extracted from: Title:Office Visit Note Author:DO Orellana Pa ige M Date:07/12/24 1.Urinary tract infection Acute w/ systemic symptoms or complicated injury Goal: Resolution Data:external notes including: _EDVisitNote Plan: UA completed in office with positive leukocyte esterase, nitrites, blood. Will send urine for culture and plan to treat in the meantime with ciprofloxacin x5 days. Fortunately vital signs stable at this time (note: patient declined blood pressure measurement) withnoevidence offever, tachycardiaetc and she is tolerating food and liquids by mouth. Considering ongoing back discomfort, discussed CT scan of abdomen but will defer ordering at this time while allowing time for oral antibiotics to work. Strongly recommended close follow up in office this Wednesday, however patient states she is currently camping 120 miles away and will not be able to come back for an appointment. I offered a phone call this Wednesday to check in on her symptoms which she is agreeable to. Discussed strict return precautions/red flag symptoms that indicate need for emergent evaluation in ED including worsening urinary symptoms and back pain, fever/body aches/chills, inability to keep fluids down. Patient expresses understanding of these red flag symptoms and states that she will be close by to the [place] ED if necessary. 2.Fecal incontinence Chronic condition not at goal/exacerbated/progressive/side effects of treatment Goal: Resolution Data: N/A Plan: Chronic problem for decades. Discussed new referral for urogynecology as there is concern that her ongoing fecal incontinence is contributing toher recurrent UTIs/urinary symptoms. Referral placed. Immunizations Given and Recorded Vaccine Date Status Refusal Reason SARS-CoV-2 mRNA-1273 (6y+ bivalent) 1 10/07/22 Rec orded zoster vaccine, inactivated 2 10/29/21 Recorded zoster vaccine, inactivated 3 08/27/21 Recorded SARS-CoV-2 (COVID-19) mRNA-1273 vaccine 10/22/21 R ecorded SARS-CoV-2 (COVID-19) mRNA-1273 vaccine 4 09/23/21 Recorded SARS-CoV-2 (COVID-19) mRNA-1273 vaccine 02/23/21 R ecorded SARS-CoV-2 (COVID-19) mRNA-1273 vaccine 01/26/21 R ecorded pneumococcal 13-valent vaccine 5 08/27/21 Recorded pneumococcal 13-valent vaccine 6 12/23/16 Recorded influenza virus vaccine, inactivated 08/13/21 Cliff rded influenza virus vaccine, inactivated 09/17/20 Cliff rded influenza virus vaccine, inactivated 08/28/15 Cliff rded influenza virus vaccine, inactivated 08/27/14 Cliff rded influenza virus vaccine, inactivated 08/22/11 Cliff rded tetanus/diphtheria/pertuss, acel (Tdap) 07/05/18 R ecorded tetanus/diphtheria/pertuss, acel (Tdap) 12/12/12 R ecorded tetanus toxoids-diphtheria, Td (Adult) 7 11/22/16 Recorded zoster vaccine live 8 12/23/12 Recorded pneumococcal 23-valent vaccine 9 12/23/12 Recorded 1Result Comment: 2023-01-11: Historical information-source unspecified 2Result Comment: 2023-01-11: Historical information-source unspecified 3Result Comment: 2023-01-11: Historical information-source unspecified 4Result Comment: 2023-01-11: Historical information-source unspecified 5Result Comment: 2023-01-11: Historical information-source unspecified 6Result Comment: 2023-01-11: Historical information-source unspecified 7Result Comment: 2023-01-11: Historical information-source unspecified 8Result Comment: 2023-01-11: Historical information-source unspecified 9Result Comment: 2023-01-11: Historical information-source unspecified Medications ciprofloxacin 250 mg oral tablet Start: 07/14/24 3:02:00 PM EDT, 1 tab, PO, q12h, Disp# 6 tab, Refills: 0, Pharmacy: [facility] Start Date: 07/14/24 Stop Date: 07/17/24 Status: Ordered colestipol 1 g oral tablet Start: 04/21/24 7:42:00 AM EDT, 1 tab, PO, Daily, Disp# 30 tab, Refills: 2, Pharmacy: [facility] 0 Start Date: 04/21/24 Stop Date: 07/20/24 Status: Ordered diclofenac sodium 75 mg oral delayed release tablet Start: 01/28/24 1:21:00 PM EST, 1 tab, PO, Daily, Disp# 90 tab, Refills: 1, Pharmacy: [facility] 769 Start Date: 01/28/24 Status: Ordered DULoxetine 20 mg oral delayed release capsule Start: 05/16/24 4:24:00 PM EDT, 1 cap, PO, Daily, Disp# 30 cap, Refills: 5, Pharmacy: [facility] [id number] Start Date: 05/16/24 Status: Ordered estradiol 1 mg oral tablet Start: 05/08/24 8:53:00 PM EDT, 1 tab, PO, Daily, Disp# 30 tab, Refills: 5, Pharmacy: [facility] 223 Start Date: 05/08/24 Status: Ordered Imodium A-D 2 mg oral tablet Start: 05/03/24 8:38:00 AM EDT, 1 tab, PO, q4h, PRN: diarrhea Start Date: 05/03/24 Status: Ordered lisinopril 10 mg oral tablet Start: 01/28/24 1:21:00 PM EST, 1 tab, PO, Daily, Disp# 30 tab, Refills: 0, Pharmacy: [facility]69 Start Date: 01/28/24 Status: Ordered Lyrica 25 mg oral capsule Start: 03/14/24 9:22:00 AM EDT, 1 cap, PO, bid, Disp# 60 cap, Refills: 2, Pharmacy: [facility] Start Date: 03/14/24 Status: Ordered Myrbetriq 50 mg oral tablet, extended release Start: 05/17/24 11:00:00 AM EDT, 1 tab, PO, Daily, Disp# 30 tab, Refills: 3, Pharmacy: [facility] Start Date: 05/17/24 Status: Ordered omeprazole 20 mg oral delayed release capsule Start: 03/14/24 9:22:00 AM EDT, 1 cap, PO, Daily, Disp# 30 cap, Refills: 2, Pharmacy: [facility] Start Date: 03/14/24 Status: Ordered simvastatin 40 mg oral tablet Start: 03/14/24 9:22:00 AM EDT, 1 tab, PO, qhs, Disp# 90 tab, Refills: 1, Pharmacy: [facility] Start Date: 03/14/24 Status: Ordered traZODone 100 mg oral tablet Start: 06/28/24 12:45:00 PM EDT, 1 tab, PO, qhs, Disp# 30 tab, Refills: 2, Pharmacy: [facility] Start Date: 06/28/24 Status: Ordered Vitamin B12 Start: 02/26/23 9:05:00 AM EDT Start Date: 02/26/23 Status: Ordered Vitamin D3 Start: 02/26/23 9:06:00 AM EDT Start Date: 02/26/23 Status: Ordered zinc (as gluconate) 50 mg oral tablet Start: 02/26/23 9:06:00 AM EDT Start Date: 02/26/23 Status: Ordered Mental Status 07/12/24 Barriers to Learning one year None evide nt Mandatory Health Literacy Documentation Yes Health Literacy Communication Barriers N ever Primary Language Turkish Problem List Condition Confirmation Course Effective Dates Status H ealth Status Informant Diarrhea Confirmed Active Barretts esophagus Confirmed Active CKD (chronic kidney disease) Confirmed Active Chronic pain Confirmed Active Chronic pain syndrome Confirmed Active Dislocation of left thumb Confirmed Active Hormone disorder Confirmed Active Dry cough Confirmed Active Dysphagia Confirmed Active Fatigue Confirmed Active Fibromyalgia Confirmed Active Hiatal hernia Confirmed Active Hypertension Confirmed Active Hyponatremia Confirmed Active Fecal incontinence Confirmed Active Myalgia Confirmed Active Neuropathy Confirmed Active Hormone replacement therapy, postmenopausal Confirmed Active Rib pain Confirmed Active Diagnosis Diagnosis Type Effective Dates Health Status Clinical Service Informant Fecal incontinence Discharge Diagnosis 05/03/24 Non-Specified Urinary tract infection Discharge Diagnosis 07/13/24 Non-Specified Procedures Procedure Date Related Diagnosis Body Site Status EGD - esophagogastroduodenos copy 1, 2, 3 03/28/24 Completed Endoscopy and biopsy of uppe r gastrointestinal tract 4, 5 06/18/20 Comp leted APPENDECTOMY Completed Colonoscopy 6, 7 Complete d History of cholecystectomy Completed Hysterectomy Completed 1- 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 Biopsied. Dilated. - Normal stomach. - Normal examined duodenum. 2Esophagus, biopsy: Fragments of mildly inflamed squamous and gastric-type mucosa. COMMENT: There is no evidence of intestinal metaplasia, dysplasia, or carcinoma. 3Repeat EGD in as needed only 4BARRETT'S BIOPSY 1: NEGATIVE FOR DYSPLASIA, SQUAMOUS MUCOSA WITH REACTIVE CELLULAR CHANGES. CHUNG'S BIOPSY 2: NEGATIVE FOR DYSPLASIA, SQUAMOUS MUCOSA WITH REACTIVE CELLUALR CHANGES. 5A medium-sized hiatal hernia was present. The esophagus and gastroesophageal function were examined with white light. There were esophageal mucosal changes suggestive of short-segment Chung's esophagus. These changes involoved the mucosa extending to the Z-line. One tongue salmon-colored mucosa was present. The maximum longitudinal extent of these esophageal mucosal changes was 2cm in length. Mucosa was biopsied with a cold forceps forhistology in 4 quadrants at intervals of 1cm. The following biopsy specimens were sent to pathology: biopsy from the distal third of the esophagus and biopsy from the distal third of the esophagus. Atotal 2 specimen bottles were sent to pathology. Estimated blood loss: none. Diffuse mildly erythematous mucosa without bleeding was found in the stomach. The duodenal buld and second portion of the duodenum were normal. 6PATHOLOGY RESULTS: COLON RIGHT-NO ABNORMALITY. COLON LEFT- NO ABNORMALITY 7External hemorrhoids were found. The hemorrhoids were small. Multiple small and large-mouthed diverticula were found in the sigmoid, descending colon and transverse. Biopsies for histology were taken with a cold forceps from the right colon and left colon for evaluation of microscopic colitis. Estimated blood loss: none, stool aspirate sent for testing. No evidence of polyps nor masses. Results Laboratory List Name Date Urine Chemstick POC Outpt. (UA Chemstick POC Outpt.) 07/12/24 Most recent to oldest [Reference Range]: 1 Glucose Urine Dipstick Ref Range [negati ve] (07/12/24 1:48 PM) Bilirubin Urine Dipstick Ref Range [nega tive] (07/12/24 1:48 PM) Specific [place] Urine Ref Range [No Nor mal Defined] (07/12/24 1:48 PM) Protein Urine Dipstick Ref Range [negati ve] (07/12/24 1:48 PM) pH Urine Dipstick Ref Range [4.5 - 8.0] (07/12/24 1:48 PM) Ketones Urine Dipstick Ref Range [negati ve] (07/12/24 1:48 PM) Blood Urine Dipstick Ref Range [negative ] (07/12/24 1:48 PM) Urobilinogen Urine Dipstick Ref Range [0 .2 - 1.0 mg/dL] (07/12/24 1:48 PM) Nitrites Urine Dipstick Ref Range [negat maite] (07/12/24 1:48 PM) Leukocytes Urine Dipstick Ref Range [neg ative] (07/12/24 1:48 PM) U Leuk Est Large (07/12/24 1:48 PM) U Nitrite Positive (07/12/24 1:48 PM) U Urobilinogen 0.2 mg/dl (07/12/24 1:48 PM) U Protein 100 mg/dl (07/12/24 1:48 PM) U pH 5.5 (07/12/24 1:48 PM) U Blood Small (07/12/24 1:48 PM) U Spec Grav 1.030 1 (07/12/24 1:48 PM) U Ketones Negative (07/12/24 1:48 PM) U Bili Negative (07/12/24 1:48 PM) U Gluc Negative (07/12/24 1:48 PM) U Appear Clear (07/12/24 1:48 PM) Urine color urine dipstick Colorless (07/12/24 1:48 PM) 1Result Comment: Performed at: [facility], [address], [address], [place] [address] Orders for Microbiology Reports Name Date Urine Culture (CULTURE, URINE) 07/12/24 Microbiology Reports TEST:Urine.Cx STATUS:Auth (Verified) BODY SITE: SOURCE:Urine COLLECTED DATE/TIME:07/12/24 12:00 PM Status FINAL 07/14/2024 ORGANISM:Enterobacter Cloacae Complex Susceptibilty: Enterobacter Cloacae Complex Tested Drug Broth SHRUTI Dilution Broth Interpr etation Trimeth-Sulfamethoxazole <=0.5/9.5 Suscept . Tetracycline <=4 Suscept. Piperacillin Tazobac 64 Intermed. Nitrofurantoin <=32 Suscept. Meropenem <=1 Suscept. Levofloxacin <=0.5 Suscept. Gentamicin <=2 Suscept. Ertapenem <=0.5 Suscept. Ciprofloxacin <=0.25 Suscept. Ceftriaxone >32 Resistant Cefepime <=2 Suscept. Cefazolin >16 Resistant Ampicillin >16 Resistant Ampicillin/Sulbactam >16/8 Resistant Amoxicillin/Clavulanic A >16/8 Resista nt Vital Signs Most recent to oldest [Reference Range]: 1 Height 159 cm (07/12/24 11:20 AM) Patient Weight 66.4 kg (07/12/24 11:20 AM) Body Mass Index 26.26 kg/m2 (07/12/24 11:20 AM) Temperature [36.5-37.9 DegC] 36.6 DegC (07/12/24 11:20 AM) Heart Rate 65 bpm (07/12/24 11:20 AM) Respiratory Rate 12 br/min (07/12/24 11:20 AM) Social History Social History Type Response Smoking Status Never smoked cigaret meghana Sex Female Sex Representation Female (finding) FCM Outpt Note * MD Leydi, Jaxson B: MODIFY MD Holley Mark B: MODIFY Event Display: FCM Outpt Note Authored Date: Chief Complaint Hospital f/u- continued lower back pain,frequent urination History of Present Illness Ayana is a 79 year-old female who presents today for concern of urinary symptoms. -Was seen in the ED and treated for UTI vs pyelonephritis two weeks ago, treated with cefdinir. Urine culture result later showed onlymixed urogenital lucas Symptoms improved after antibiotic, however within the past few days she has started to have more urinary frequency and back pain again. States her symptoms are "not as bad" as when she went to the ED, but is concerned that they will worsen -Has been taking Azo without improvement of symptoms. Denies blood in urine, endorses cloudy urine -Denies any known fevers. No body aches/chills, but notes low energy. -Has been eating and drinking without issue, no nausea/vomiting -Reports history of decades of issues with loose stool/diarrhea, at times including fecal incontinence which did seem to worsen while on the cefdinir. Reports history of prior vaginal deliveries withsignificant tearingwhich lead to fecal and urinary incontinence, reports multiple urogynsurgeries in her lifetime with the most recent being several years ago at [facility] with Dr. Romero Physical Exam Vitals & Measurements T:36.6C HR:65(Monitored) RR:12 SpO2:98% HT:159cm WT:66.4kg WT:66.400kg(Dosing) BMI:26.26 PHQ2 Data(Data Documented on:07/12/2024 11:18) Emotional health assessment NEGATIVE General:Alert and oriented, No acute distress HEENT: Normocephalic, Nl gross hearing, moist oral mucosa Cardiovascular:Normal rate, Regular rhythm, No murmur, No gallop. No lower extremity edema. Respiratory:Lungs are clear to auscultation, Respirations are non-labored, Breath sounds are equal Musculoskeletal: Some CVA tenderness to palpation bilaterally Integumentary:Warm, Dry, [place]. Psych: Mood-affect congruence. Speech is of normal pace and content Assessment/Plan 1.Urinary tract infection Acute w/ systemic symptoms or complicated injury Goal: Resolution Data:external notes including: _EDVisitNote Plan: UA completed in office with positive leukocyte esterase, nitrites, blood. Will send urine forculture and plan to treat in the meantime with ciprofloxacin x5 days. Fortunately vital signs stable at this time (note: patient declined blood pressure measurement) withnoevidence offever, tachycardiaetc and she is tolerating food and liquids by mouth. Considering ongoing back discomfort, discussed CT scan of abdomen but will defer ordering at this time while allowing time for oral antibiotics to work. Strongly recommended close follow up in office this Wednesday, however patient states she is currently camping 120 miles away and will not be able to come back for an appointment. I offered a phone call this Wednesday to check in on her symptoms which she is agreeable to. Discussed strict return precautions/red flag symptoms that indicate need for emergent evaluation in ED including worsening urinary symptoms and back pain, fever/body aches/chills, inability to keep fluids down. Patient expresses understanding of these red flag symptoms and states that she will be close by to the [place] ED if necessary. 2.Fecal incontinence Chronic condition not at goal/exacerbated/progressive/side effects of treatment Goal: Resolution Data: N/A Plan: Chronic problem for decades. Discussed new referral for urogynecology as there is concern that her ongoing fecal incontinence is contributing toher recurrent UTIs/urinary symptoms. Referral placed. Attestation I saw the patient with Dr. Monique confirmed the herrera portions of the history and physical exam and agree with the above impression and plan. Last UCx neg. Multiple abx allergies. Agree that with symptoms and UA findings, coverage is prudent (particularly given patients follow up situation in that she is camping this week). Urogyn input appreciated. Nontoxic in appearance and makes informed decision in context of testing and follow up. Problem List/Past Medical History Ongoing Barretts esophagus Chronic pain Chronic pain syndrome CKD (chronic kidney disease) Diarrhea Dislocation of left thumb Dry cough Dysphagia Fatigue Fecal incontinence Fibromyalgia Hiatal hernia Hormone disorder Hormone replacement therapy, postmenopausal Hypertension Hyponatremia Myalgia Neuropathy Rib pain Procedure/Surgical History EGD - esophagogastroduodenoscopy| Service Date: 03/28/2024Endoscopy and biopsy of upper gastrointestinal tract| Service Date: 06/18/2020APPENDECTOMYHistory of cholecystectomyHysterectom yColonoscopy Medications cholecalciferol(Vitamin D3) ciprofloxacin(ciprofloxacin 250 mg oral tablet), 250 mg= 1 tab, PO, q12h colestipol(colestipol 1 g oral tablet), 1 g= 1 tab, PO, Daily, 2 refills cyanocobalamin(Vitamin B12) diclofenac(diclofenac sodium 75 mg oral delayed release tablet), 75 mg= 1 tab, PO, Daily, 1 refills DULoxetine(DULoxetine 20 mg oral delayed release capsule), 1 cap, PO, Daily, 5 refills estradiol(estradiol 1 mg oral tablet), 1 mg= 1 tab, PO, Daily, 5 refills lisinopril(lisinopril 10 mg oral tablet), 10 mg= 1 tab, PO, Daily loperamide(Imodium A-D 2 mg oral tablet), 2 mg= 1 tab, PO, q4h, PRN mirabegron(Myrbetriq 50 mg oral tablet, extended release), 50 mg= 1 tab, PO, Daily, 3 refills omeprazole(omeprazole 20 mg oral delayed release capsule), 20 mg= 1 cap, PO, Daily, 2 refills pregabalin(Lyrica 25 mg oral capsule), 25 mg= 1 cap, PO, bid, 2 refills simvastatin(simvastatin 40 mg oral tablet), 40 mg= 1 tab, PO, qhs, 1 refills traZODone(traZODone 100 mg oral tablet), 1 tab, PO, qhs zinc gluconate(zinc (as gluconate) 50 mg oral tablet) Allergies Bee stingsanaphylaxis Keflexairway edema gabapentinconfusion sulfa drugsairway edema Social History Smoking Status Never smoked cigarettes Alcohol Frequency:1-2 times per month Employment/School Status:Retired Description: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 [employer] Exercise Duration (average number of minutes):45 Times per week:3-4 times/week Exercise type:Walking, Running, Weight lifting Home/Environment Lives with:Spouse Living situation:Home/Independent Alcohol abuse in household:No Substance abuse in household:No Smoker in household:No Injuries/Abuse/Neglect in household:No Feels unsafe at home:No Family/Friends available to help:Yes Other risks in environment:Pets/Animal exposure Nutrition/Health Type of diet:Regular Sleeping concerns:Yes Feels highly stressed:Yes- Comments: Trazadone nightly Substance Abuse - Denies Substance Abuse Tobacco - Denies Tobacco Use Use:Never smoker Family History Family history is unknown Immunizations Vaccine Date [id number] mRNA-1273 (6y+ bivalent) 10/07/2022 Recorded Comments : 2023-01-11: Historical information-source unspecified zoster vaccine, inactivated 10/29/2021 Recorded Comments : 2023-01-11: Historical information-source unspecified SARS-CoV-2 (COVID-19) mRNA-1273 vaccine 10/22/2021 Recorded SARS-CoV-2 (COVID-19) mRNA-1273 vaccine 09/23/2021 Recorded Comments : 2023-01-11: Historical information-source unspecified zoster vaccine, inactivated 08/27/2021 Recorded Comments : 2023-01-11: Historical information-source unspecified pneumococcal 13-valent vaccine 08/27/2021 Recorded Comments : 2023-01-11: Historical information-source unspecified influenza virus vaccine, inactivated 08/13/2021 Recorded SARS-CoV-2 (COVID-19) mRNA-1273 vaccine 02/23/2021 Recorded SARS-CoV-2 (COVID-19) mRNA-1273 vaccine 01/26/2021 Recorded influenza virus vaccine, inactivated 09/17/2020 Recorded tetanus/diphtheria/pertuss, acel (Tdap) 07/05/2018 Recorded pneumococcal 13-valent vaccine 12/23/2016 Recorded Comments : 2023-01-11: Historical information-source unspecified tetanus toxoids-diphtheria, Td (Adult) 11/22/2016 Recorded Comments : 2023-01-11: Historical information-source unspecified influenza virus vaccine, inactivated 08/28/2015 Recorded influenza virus vaccine, inactivated 08/27/2014 Recorded zoster vaccine live 12/23/2012 Recorded Comments : 2023-01-11: Historical information-source unspecified pneumococcal 23-valent vaccine 12/23/2012 Recorded Comments : 2023-01-11: Historical information-source unspecified tetanus/diphtheria/pertuss, acel (Tdap) 12/12/2012 Recorded influenza virus vaccine, inactivated 08/22/2011 Recorded Recommendations Health Maintenance Pending(in the next year) OverDue Adult Influenza Vaccine due05/21/24and every 1year Due Adult Social Determinants of Health Screening due07/12/24Unknown Frequency Lipid Screening due07/12/24Unknown Frequency Medicare Annual Wellness Visit due07/12/24and every 1year Osteoporosis Screening due07/12/24One-time only Satisfied(in the past 1 year) Satisfied Body Mass Index on07/12/24.Satisfied by [facility] [place] Electronic Signature on File Electronically Reviewed/Signed by: Devi Orellana Author Signature Dt/Tm:07/12/2024 10:32 PM Resident Department of Family Medicine Electronically Reviewed/Signed by: Jaxson Holley MD Cosigner Signature Dt/Tm: 07/13/2024 12:54 PM Department of Family Medicine PMW Patient Care team information Care Team Personnel Name: DO Dixon Gretchen Elizabeth Position: Physician - Family Med Member Role: Primary Care Provider Address: [address] [place] [address], [place] [address] Care Team Related Persons Name: JOJO KENNEDY
[2024-07-17 21:50] VITALS: RESP 16
[2024-07-17] MEDS: traZODone HCL 50 MG TAB PO SCH (22:26)
[2024-07-17] MEDS: VIBEGRON 75 MG TAB PO SCH (22:26)
[2024-07-17] MEDS: estradioL 1 MG TAB PO SCH (22:27)
[2024-07-17] MEDS: PREGABALIN 50 MG CAP PO SCH (22:39)
[2024-07-18] MEDS: PANTOprazole 40 MG TAB PO SCH (05:43)
[2024-07-18] MEDS: PHENAZOPYRIDINE HCL 100 MG TAB PO PRN (05:45)
[2024-07-18 06:16] LABS: Basophils # (auto) 0.06 K/uL (0.00-0.20); Eosinophils # (auto) 0.36 K/uL (0.00-0.50); Eosinophils % (auto) 5.9 %; Hematocrit (blood only) 31.6 % (37.0-47.0); Hemoglobin 10.4 g/dl (12.0-16.0); Immature Granulocytes # (auto) 0.01 K/uL (0.01-0.20); Immature Granulocytes % (auto) 0.2 %; Lymphocytes # (auto) 2.31 K/uL (1.20-3.40); Lymphocytes % (auto) 37.6 %; Mean Corpuscular Hemoglobin 28.2 pg (25.0-34.0); Mean Corpuscular Hgb Conc 32.9 g/dL (32.0-36.0); Mean Corpuscular Volume 85.6 fL (80.0-100.0); Mean Platelet Volume 10.2 fL (9.4-12.4); Monocytes # (auto) 0.34 K/uL (0.11-0.59); Monocytes % (auto) 5.5 %; Neutrophils # (auto) 3.07 K/uL (1.40-6.50); Neutrophils % (auto) 49.8 %; Platelet Count 174 K/uL (130-400); RDW Coefficient of Variation 14.2 % (11.5-14.5); RDW Standard Deviation 44.8 fL (36.4-46.3); Red Blood Count 3.69 M/uL (4.20-5.40); White Blood Count 6.15 K/ul (4.8-10.8)
[2024-07-18 06:59] LABS: BUN Creatinine Ratio 15.8 (10-20); Calcium 8.6 mg/dl (8.6-10.3); Creatinine Clr Calc Pharmacy 34.8 ml/min; Est GFR (African American) 52.2 ml/min; Est GFR (Non-African American) 45.1 ml/min; Potassium 4.5 mmol/L (3.5-5.1)
--- NOTE | 2024-07-18 07:28 | Hospitalist Progress Note ---
Date of Service July 18, 2024 Assessment & Plan (1) Acute pyelonephritis: (2) Low back pain: (3) Fibromyalgia: Plan 1) Acute pyelonephritis Suspected - CVA tenderness on exam, pain out of proportion to lab/imaging which appears consistent with prior hospitalizations (pancreatitis with severity 15/10 pain). - suspect RA/fibromyalgia is why currently in so much pain but given definitive prior infections, positive Ur Cx on July 12 and bladder wall thickening on CT, will treat as suspected pyelonephritis until repeat Ur Cx results - no fevers, WBC count WNL - However ciprofloxacin should have adequately treated July 12 infection with Enterobacter Cloacae complex Follow up repeat Ur Cx, pending, showed pinpoint growth IV cefepime, continue 2) Low back pain Fibromyalgia/RA but could be pyelo 1st line Acetaminophen 1g PO TID, 2nd line Toradol, 3rd line oxycodone Consider increasing pregabalin if not well controlled despite treatment for UTI as above or if UTI ruled out - gave Mg, IV, 4 mg, for musculoskeletal pain 3) Rheumatoid arthritis Reports diagnosed 15 years ago by rheumatology but never on DMARDs. This Dx not carried over from her [facility] to [facility] PCP notes and may have been lost in transition Chronic complaints (fatigue, chest pains, flares/swelling of joints, neuropathy) could be due to fibromyalgia, RA, or dual etiology ESR, 39; CRP, < 0.50 FELICIA, RF, anti-CCP antibodies pending Will defer any treatment pending pyelonephritis Tx, but consult rheumatology for recommendations in the meantime 4) Fibromyalgia Pregabalin 50mg PO BID Duloxetine, 20 mg, PO, daily (continue titrating up these doses as outpt) 5) Urinary incontinence Continue mirabegron Plan Code status: Full code VTE Prophylaxis - heparin 5000 units SQ BID Diet - regular Disposition - Med/surg Admission and Anticipated Discharge Date Admission Date: July 17, 2024 Supervising Physician Co-Signing Physician Notes I personally examined the patient and verified all herrera points of history and exam, discussed case, and agree with decision making with Dr Gomez back pain. Pelvic pain. Some urinary frequency, but not dysuria, urine does not smell foul like she notes that it is prior UTIs. Vitals noted, in general she is awake and alert pleasant no distress. HEENT normocephalic atraumatic mucous membranes moist. Musculoskeletal shows bilateral lumbar paraspinal tendernesshigh tone, decreased range of motionimproved with gentle myofascial, patient tolerated well although it was quite tender. She does not really have any CVA tenderness to percussion. Neuro without focal deficits. Back painseems far more consistent with musculoskeletal painpossibly amplified by her fibromyalgia and what seems to be a rather significant myofascial pain syndromenothing consistent with pyelonephritis. As far as her back pain goesdid gentle OMT, and suspect she would benefit from a chronic regimen of OMT as an outpatient. Magnesium IV, Voltaren gel. Extensive education. As an outpatient would likely benefit from light cardiovascular exercise on a daily basis. Possible UTIantibiotics for now pending culturegiven some degree of pelvic and urinary symptoms if culture positive would finish her course of treatment. At the same time if culture negative, we discussed that some of what is going on could certainly fit with pelvic floor pain as part of her myofascial pain syndrome/etc. Extensive discussionsin the room for 30-45 minutes answering all questions to the best of my ability. Otherwise as above. Review of Systems Constitutional: + body aches and + fatigue (acute on chr onic fatigue last 3 months); no fever and no chills Ear, Nose, Mouth, Throat: + dizziness; no nasal congestion, no pretty al discharge, no post nasal drip and no sore throat Respiratory: + dyspnea on exertion; no cough Cardiovascular: no chest pain and no palpitations Gastrointestinal: no abdominal pain, no nausea and no vomiting Genitourinary: + urinary frequency, + nocturia and + fl ank pain; no dysuria and no hematuria supra-pubic pain Neurologic: + tingling, + numbness and + headache(s) Physical Exam Constitutional: WD/WN, vitals as above Respiratory: normal respiratory effort, lungs clear to auscultation Cardiovascular: RRR, no murmur, no edema Gastrointestinal (Abdomen): Inspection/Auscultation: normal bowel sounds; abdomen not distended Percussion/Palpation: + abdomen tender; no hepatosplen omegaly Musculoskeletal: Hip: + joint line tenderness Knee: + joint line tenderness Ankle: + joint line tenderness (ankle) Neurologic: normal touch/pain/proprioception and awake patient w/ numbness/tingling in LE's Psychiatric: A+Ox3, euthymic affect Genitourinary: + CVA tenderness supr Results & Data Results & Data Vital Signs (Past 12 Hours) Vital Signs Temp Pulse Resp BP Pulse Ox O2 Del Method 07/17/24 20:23 36.7 C 64 16 130/77 95 Room Air Resident Activity Tracking Resident Involvement: Resident Care Provided Care Provided: Adult Hospital Medicine
[2024-07-18] MEDS: KETOROLAC TROMETHAMINE 15 MG/ML VIAL IV PRN (08:40)
[2024-07-18] MEDS: COLESTIPOL HCL 1 GM TAB PO SCH (08:41)
[2024-07-18] MEDS: DULoxetine HCL 20 MG CAP PO SCH (08:41)
[2024-07-18] MEDS ORDERED: estradioL 1 MG TAB PO SCH (09:00)
[2024-07-18] MEDS: HEPARIN SOD 5,000 UNIT/0.5 ML VIAL SQ SCH (09:46)
[2024-07-18] MEDS: CYANOCOBALAMIN (B-12) 500 MCG TABLET PO SCH (09:46)
[2024-07-18] MEDS: MAGNESIUM SULFATE / D5W 1 GM/100 ML BAG IV SCH (11:45)
[2024-07-18] MEDS: DICLOFENAC SOD 1% GEL 100 GM TUBE EXT SCH (13:03)
--- NOTE | 2024-07-18 17:47 | Billing Data ---
Date of Service July 18, 2024 Coding Level of Care Code 62589 SUB INP/OBS CARE MIN
--- NOTE | 2024-07-19 06:59 | Discharge Summary ---
Date of Service July 19, 2024 Admission HPI Per Admitting Provider Natalie Salgado is an 79-year-old female who presents to the ER sent by PCP due to concerns for UTI and low back pain. The patient reports ongoing problems all summer with UTIs. Timeline difficult due to lack of notes from outside hospitals and patient recollection but generally... Initial event appears to have been in March at [facility] in [place], [place]. She reports urine smell and generalized confusion. She was prescribed ciprofloxacin on April 08 for 7 days. She reports a second UTI in April again with foul odor, a lot of pain and episode of syncope. She was hospitalized at that time and treated with unknown antibiotic but she does not have appeared to be prescribed any antibiotic on discharge. The third episode she just had pain (abdominal and back) although ER also noted dysuria at that time. She came to [facility] ER and was diagnosed with acute pyelonephritis and subsequent culture grew mixed lucas. She was discharged from the ER and treated with 10 days of cefdinir. She reports since this time her abdominal and back pain have not resolved and the cefdinir did not appear to make any difference other than give her diarrhea. She followed up with her PCP and urine culture taken on July 12 growing Enterobacter Cloacae Complex resistant to Augmentin/Ampicillin/Unasyn/Cefazolin/Ceftriaxone with intermediate resistance to Zosyn. She ws treated with 5 days of ciprofloxacin however when this failed to treat her pain she was advised by her PCP today to come to the ER. She notes severity 10/10 abdominal and back pain. No radiation down her legs. No nausea, vomiting, change in bowels. She currently denies any specific urinary complaints such as dysuria, change in urinary frequency/small/color. Despite her fibromyalgia she reports this pain is new since June 26 but never resolved since then. She notes a significant history of repeated bladder suspension surgeries in [place] 3-4 years ago but was told she cannot have another operation. She has a history of urinary urgency but this is well controlled on Myrbetriq. She has a number of more chronic complaints over the last 1-2 years including generalized fatigue, worsening joint deterioration of her hands, bilateral lower rib pain (worse on palpation), worsening neuropathy. She notes a diagnosis of rheumatoid arthritis 15 years ago but reports never being on DMARDs. She has never thought of her current problems as related to the rheumatoid arthritis. Notably she recently saw the pain clinic and it was also recommended to follow up with rheumatology for consideration of DMARDs. Admission Exam Per Admitting Provider Physical Exam Constitutional: well developed and + frail appearing; no acute distress Eyes: PERRL, conjunctivae normal, anicteric sclerae ENMT: external ear and nose normal, oropharynx normal Respiratory: normal respiratory effort, lungs clear to auscultation Cardiovascular: RRR, no murmur, no edema Gastrointestinal (Abdomen): Inspection/Auscultation: abdomen normal to inspection; abdomen not distended Percussion/Palpation: + abdomen tender (generalized R > L), + guarding and abdomen soft; abdomen not rigid Musculoskeletal: MCP without significant DIP swelling of hands b/l with ulnar deviation of MCP joints and Boutonniers deformity of both thumbs Skin: no rashes, warm and dry Neurologic: moves all extremities and awake; not confused Psychiatric: A+Ox3, euthymic affect Genitourinary: + CVA tenderness (b/l R > L) Principal Diagnosis Fibromyalgia, myofascial pain syndrome, B12 deficiency Discharge Exam Constitutional WD/WN, vitals as above Respiratory normal respiratory effort, lungs clear to auscultation Cardiovascular RRR, no murmur, no edema Gastrointestinal (Abdomen) Inspection/Auscultation: normal bowel sounds; abdomen not distended Percussion/Palpation: + abdomen tender; no hepatosplenomegaly Musculoskeletal Hip: + joint line tenderness Knee: + joint line tenderness Ankle: + joint line tenderness (ankle) Neurologic normal touch/pain/proprioception and awake Psychiatric A+Ox3, euthymic affect Genitourinary + CVA tenderness Discharge Data Allergies Allergy/AdvReac Type Severity Reaction Status Date / Time insect venom Allergy Severe ANAPHYLAXIS Verified 07/17/24 14:33 WITH YELLOW JACKET BITE latex Allergy Unknown Rash Verified 07/17/24 14:33 adhesive tape AdvReac Unknown PULLS SKIN Verified 07/17/24 14:33 OFF cephalexin [From Keflex] AdvReac Unknown NAUSEA Verified 07/17/24 14:33 VOMITING nitrofurantoin AdvReac Unknown Vomiting,PASSED Verified 07/17/24 14:33 OUT Sulfa (Sulfonamide AdvReac Unknown Vomiting Verified 07/17/24 14:33 Antibiotics) Consultations 07/17/24 14:11 ED Decision to Admit Stat 07/18/24 02:36 Consult Rheumatology Routine Ordered Studies 07/17/24 12:08 CT Abd and Pelvis [CT abd pelvis IV con only] Stat Hospital Course (1) Acute pyelonephritis: (2) Low back pain: (3) Fibromyalgia: Plan 1) Fibromyalgia/myofascial pain syndrome/Low back pain Fibromyalgia/RA (pyelonephritis considered, but no fevers, WBC WNL, and negative Ur Cx) 1st line Acetaminophen 1g PO TID, 2nd line Toradol, 3rd line oxycodone for inpatient pain mgmt Considered increasing pregabalin if not well controlled despite treatment for UTI as above or if UTI ruled out - gave Mg, IV, 4 mg, for musculoskeletal pain during hospital stay, patient with good response, next morning felt much better - encouraged patient to develop mild-moderate aerobic exercise pain as outpt to help manage fibromyalgia - continue Pregabalin 50mg PO BID as outpatient, consider increasing dose due to breakthrough Sx - continue Duloxetine, 20 mg, PO, daily as outpatient, consider increasing dose due to breakthrough Sx 2) Pelvic floor pain - Ur Cx showed no dominant growth of bacteria, makes it far less likely that your pelvic floor symptoms were infectious. - likely that UTI's pt has struggled with have cleared. - quite common for people with fibromyalgia and myofascial pain syndromes to have pelvic and bladder pain as well; could be beneficial to look at it as continuum of the fibromyalgia and myofascial pain syndrome. - patient still encouraged to see her PCP or go to the ED should she really suspect a recurrent UTI or cystitis 3) Rheumatoid arthritis - Reports diagnosed 15 years ago by rheumatology but never on DMARDs. - Dx not carried over from her [facility] to [facility] PCP notes and may have been lost in transition - Chronic complaints (fatigue, chest pain, flares/swelling of joints) could be due to fibromyalgia, RA, or dual etiology ESR, pos, 39; CRP, neg, < 0.50 FELICIA, RF, anti-CCP antibodies pending - Patient setup w/ Dr. Nick Albert as outpt F/U regarding possible rheumatoid arthritis or similar Dx 4) B12 Deficiency - B12 level, 233 during hospital stay - patient on mecocobalamin, 1000 mcg, sublingual, daily as outpatient - given cyanocobalamin, 1000 mcg, IM, ONCE during hospital stay - d/t B12 level during hospital stay after oral B12 as outpt, consider B12, 1000 mcg, IM as outpatient 5) Acute pyelonephritis - initially suspected, unlikely now - CVA tenderness pain out of proportion to lab/imaging, consistent with prior hospitalizations (pancreatitis severity 15/10 pain). - suspect RA/fibromyalgia is why currently in so much pain but given definitive prior infections, positive Ur Cx on July 12 and bladder wall thickening on CT, treated as suspected pyelonephritis - no fevers, WBC count WNL - ciprofloxacin should have adequately treated July 12 infection with Enterobacter Cloacae complex Follow up repeat Ur Cx, showed pinpoint growth only, re-incubation pending at d/c, will F/U if necessary IV cefepime, discontinued upon discharge 6) Urinary incontinence Continue mirabegron as outpatient Total Time Total Time Spent Total Time Spent (In Minutes): <30 Discharge Plan Discharge Items Patient Disposition: Home - Self-Care Reason For Visit: back pain Discharge Diagnosis: fibromyalgia, myofascial pain syndrome, B12 deficiency Activity: Resume your previous activity Non-emergency contact: Primary Care Provider Call non-emergency contact if: you have any medication questions and your pain is concerning for you Follow-up/Referrals: Autumn Dixon, [Primary Care Provider] - 08/01/24 10:40 am Diet: Regular Addtl Attending Provider Instructions: pelvic floor symptoms -Your urine culture is not showing any dominant growth of bacteria, this makes it far less likely that your pelvic floor symptoms were infectious. It is quite likely that the urinary tract infections you are struggling with have cleared. At the same time, it is quite common for people with fibromyalgia and myofascial pain syndromes to have pelvic and bladder pain as well. Sometimes you can "label" this with the diagnosis of "interstitial cystitis"but at the same time it is probably more beneficial to you to look at it as more of a continuum of the fibromyalgia and myofascial pain syndrome. It can be tricky to discern pelvic floor symptoms from myofascial pain with that of a true urinary tract infectionso certainly you would not "be the girl who cried garcia" having a urinalysis or culture checked with new or changing symptoms to be sure that it is not a new infection. fibromyalgia/myofascial pain syndrome - As we discussed, much of what is going on with you chronically appears to relate to your fibromyalgia. Additionally, while both are closely related, use show a lot of features of myofascial pain syndrome. - We do not truly understand the "root cause" of eitherbut we do understand a lot of how the situation "plays out" - with fibromyalgia, the working therapies would be anyone of: The part of our brain that perceives pain having a "amplified perception", the nerves that carry pain transmission from her body to our brain doing so in a way that "turns up the volume", or the pain signal generated by our muscles being "inappropriately amplified"what we know with most people with fibromyalgia is where they perceived pain are very common areas for human beings to feel muscular/fascial pain, but at the same time what we see with people with fibromyalgia is that that pain signal seems to be much higher than in an average person - myofascial pain syndrome is for your purposes "and offshoot" of the more physical manifestations of your fibromyalgia. Where you hurt are predominantly muscular and fascial areas, and the small knots that you feel (and are able to sometimes break up with your massage gun) sound very consistent with myofascial trigger points. Basically what this would mean for you is that if we approach your pain in a very musculoskeletal way, it is likely to be of significant benefit. Unfortunately the realistic goal would not be having "0 pain", but it is quite realistic to have things under better control and have better quality of life - what I find as the single most important foundation for fibromyalgia, myofascial pain syndrome (and if you end up having a "true rheumatologic diagnosis") is regular gentle cardiovascular exercise. What I mean by "regular gentle cardiovascular exercise" is anything that gets your body moving, get your heart rate up, and get you breathing heavy/light sweat. This can be anything from taking a walk, to pedaling a bike, to using an elliptical, to really anything that fits with getting your heart rate up. Ideally you would do this 20-30 minutes every single day. Give yourself the "hill" to know that you will not be perfect, but doing something more days than not, and doing more rather than less, will have a cumulative effect over time. The benefit of this light regular cardiovascular exercise seems to come in many ways: Part of it is that when we get her heart rate up, we increased blood flow throughout her entire bodyand muscles tend to be able to relax easier/be less spastic whenever they have better blood flow (so essentially 20-30 minutes of light cardiovascular exercise often becomes a better muscle relaxant than anything that we could do with a pill). Another benefit is taking stiff muscles and fascia through a range of motion to loosen them. Doing this regularly seems to give them a more relaxed tone. lastly, whenever we have body parts that hurt, often people will "guard" the area because movement hurtsthis is understandable; however, regular movement desensitize his how much it hurts to moveand doing this day in and day out can help reduce pain. - Additionally, as we discussed, Voltaren gel (topical diclofenac) can be fairly helpful for these kinds of pain. It is quite safe to use/very little of it gets absorbed into your body. As we joked, you almost could "put it in your showerhead"and so it is okay to be pretty liberal with using it. The thing to remember is that it generally does not work at any individual doserather, it takes 2-3 days using it 34 times a day for it to really even start to take effect. - You can use the Biofreeze in addition to the Voltaren gelother than if you find it irritating your skin to use both, there is really not going to be any problem with interactions/etc. - for both the back pain, and the myofascial pain, as we discussed, a final piece of management that could be quite helpful is regular OMT (osteopathic manipulative therapy)Dr. Dixon and several of her DO residents do OMT (manipulative medicine) and whenever I used to be in the office, I found that most of my fibromyalgia/myofascial pain syndrome patient's got a pretty significant pain reduction/quality of life benefit by working on them on a regular basis. As we discussed, unfortunately it is not likely that you will ever be able to get to where things are under such good control that you never need OMT again, but most of my patients that fit with your profile would get to where may be a "once a month tune up" would work well for them to feel better and was well worth there while. muscular back pain - Really this section is just an extension of the "fibromyalgia/myofascial pain syndrome" section abovebut just to clarify that your back pain fortunately did not examine at all consistent with a kidney infection (kidney pain tends to be much higher in your flank/more or less at the bottom of your rib cage, and kidney pain tends to be much more significant when we do maneuvers to "shake the kidney" whereas your pain was much worse whenever we "dug into the muscle". Additionally, it is very rare for somebody to have a kidney infection and not be septicand as discussed above, it is questionable/unlikely that you even had a urinary tract infection this time, and definitely did not have any type of a septic response. - The treatment plan moving forward for the muscular back pain really falls in line with the fibromyalgia/myofascial pain syndromelight cardiovascular exercise daily (in this respect looking at it as the blood flow to be a more effective muscle relaxant than anything we can put in a pill), Voltaren gel 34 times a day, using your massage gun across the low back muscles, and regular OMT possible rheumatologic disease - it is quite possible in addition to the fibromyalgia/myofascial pain syndrome that you do have a "true rheumatologic disease" as wellthese often go [id number]. We have a workup underway to evaluate for things like lupus and rheumatoid arthritis. Lab work has been sent and is pending, and we will have you in with Dr. AvilaeumatologKit at 130 (phone number [phone]). - It is important to keep this in perspective: If you have something like lupus or rheumatoid arthritis, look at it as an additional part of the fibromyalgia/myofascial pain syndrome diagnosis, rather than a new diagnosis that "races" the other ones. Generally managing something like lupus or RA will help with how you are feeling every day, but managing the "true rheumatologic diagnosis" without doing all of the above strategies for the fibromyalgia/myofascial pain will generally not have you feeling nearly as good as taking a more comprehensive approach. Pending Studies at Discharge: Yes Studies:: pending results for RF, anti-CCP, FELICIA Stand-Alone Forms: My [facility], Smoking Cessation Medications and DC Order Prescriptions: Continued duloxetine 20 mg capsule,delayed release(DR/EC) 20 mg PO QAM cholecalciferol (vitamin D3) 25 mcg (1,000 unit) capsule 25 mcg PO QAM mecobalamin (vitamin B12) 1,000 mcg tablet,disintegrating 1,000 mcg sublingual DAILY Rx Instructions: place tablet under tongue and allow to dissolve for at least30 secs before swallowing zinc amino acid chelate 50 mg tablet 50 mg PO DAILY mirabegron [Myrbetriq] 50 mg tablet extended release 24 hr 50 mg PO HS ibuprofen [Advil] 200 mg tablet 200 mg PO Q6H PRN (Reason: Pain) simvastatin 40 mg tablet 40 mg PO HS trazodone 100 mg tablet 100 - 150 mg PO HS diclofenac sodium 75 mg tablet,delayed release (DR/EC) 75 mg PO BID PRN (Reason: Pain) epinephrine 0.3 mg/0.3 mL auto-injector 0.3 mg IM UD PRN (Reason: Anaphylaxis) Rx Instructions: Patient believes this medication is . phenazopyridine [Pyridium] 100 mg tablet 100 mg PO Q8H PRN (Reason: pain) Qty: 14 0RF acetaminophen 500 mg Tablet 500 mg PO Q6H PRN (Reason: Pain) estradiol 1 mg tablet 1 mg PO QAM omeprazole 20 mg capsule,delayed release(DR/EC) 20 mg PO DAILYBB colestipol 1 gram tablet 1 g PO DAILY pregabalin 50 mg capsule 50 mg PO BID Discharge Orders: Discharge Order (Routine); Ordered 07/19/24 Ordered By: Tal Hawtohrne/Other Patient Handouts: Urinary Tract Infections in Women Admission Data Admit Date/Time: 07/17/24 14:56 Attending Provider: Rian Amor Admit Provider: Rob Blum Primary Care Provider: Autumn Dixon Other Providers: Rob Blum; Nick Albert Other Interventions: Discharge Summary Assessment (RN) Last Done: 07/19/24 12:21 Supervising Physician Co-Signing Physician Notes I personally examined the patient and verified all herrera points of history and exam, discussed case, and agree with decision making with Dr Gomez Feels good enough to go home. Extensive discussion on diagnoses and treatmen t. Vitals noted, in general she is awake and alert pleasant no distress. HEENT normocephalic atraumatic mucous membranes moist. Breathing unlabored no accessory muscle use good effort. Skin without rashes pallor or icterus. Neuro without focal deficits. Back painseems far more consistent with musculoskeletal painprobably amplified by her fibromyalgia and what seems to be a rather significant myofascial pain syndromenothing consistent with pyelonephritis. As far as her back pain goesdid gentle OMT, and suspect she would benefit from a chronic regimen of OMT as an outpatient. Magnesium IV given, Voltaren gel started and she will continue. Extensive education. As an outpatient would likely benefit from light cardiovascular exercise on a daily basis. highly doubt UTI - sx nonspecific urine Cx negative likely was pelvic pain related to fibro/myofascial pain/etc B12 deficiency - level 233 despite PO supplementation - likely will need B12 shots Resident Activity Tracking Resident Involvement: Resident Care Provided Care Provided: Adult Hospital Medicine
[2024-07-19 07:19] VITALS: BP 132/70; PULSE 64; TEMP 98.4; O2SAT 93
[2024-07-19] MEDS: CYANOCOBALAMIN 1000 MCG/ML VIAL IM ONE (11:30)
[2024-07-19 15:02] LABS: Anti Nuclear Antibody Screen NEGATIVE (NEGATIVE); Cyclic Citrullinated Pep IgG <16 UNITS; Rheumatoid Factor <10 IU/mL (<14)
--- NOTE | 2024-07-19 17:23 | Billing Data ---
Date of Service July 19, 2024 Coding Level of Care Code 79123 IN/OBS DISCH 30 MIN/LESS
== END 2024-07-19 13:59 | disposition home or self-care (01) | DRG 690 ==
LOC: ED 10:26 → 3W 14:56 → SUATTDRO 14:56 → 3W 16:37